=== PATIENT | female | born 1970 | race Caucasian/White ===

== ENCOUNTER 2016-05-04 18:59 | Inpatient (IN) | payer BC ==
[~2016-05-04] VITALS: Ht 165.1 cm; Wt 73.7 kg
[~2016-05-04 18:59] MED LIST: ALDACTONE100 MG PO; ALEVE220 M1 PO; ALLERGY RELIEF10 M1 PO; Cortaid,Hytone 1% Cr TP; DILAUDID2 MG PO; GLUCOPHAGE XR750 MG PO; INDERAL10 MG PO; K-DUR20 MEQ PO; K-Dur PO; KEFLEX500 MG PO; LASIX20 MG PO; LEVAQUIN500 MG PO; Lasix PO; Levaquin PO; MIGRAINE FORMU1 EACH PO; MOTRIN600 MG PO; MOTRIN800 MG PO; NOHOMEMEDS; NOVOLOG PE100 UNITS/ SC; OMEPRAZOLE20 M2 PO; OMEPRAZOLE40 M1 PO; OXYCODONE HCL5 MG PO; PERCOCET 5/31 TABLET PO; POTASSIUM CHLO10 ME3 PO; PROMETHAZINE HC25 M1 PO; PROTONIX40 MG PO; Protonix PO; REGLAN10 MG PO; ULTRAM50 MG PO; VICODIN,LORT1 TABLET PO; VITAMIN C1000 MG PO; VITAMIN K240 MCG PO; Vicodin,Lortab 5/500 PO; Vicodin,Norco 5/325 PO; XIFAXAN550 MG PO; ZOFRAN4 MG PO; ZOFRAN8 MG PO
[2016-05-04 19:51] LABS: CHLORIDE 110 mEq/L (99-109); SODIUM 139 mEq/L (136-147)
[2016-05-04 19:54] LABS: GLUCOSE 197 mg/dL (70-99)
[2016-05-04 19:55] LABS: ANION GAP 12 MEQ/L (2-14)
[2016-05-04 19:57] LABS: ALKALINE PHOSPHATASE 235 IU/L (3-129); GFR ESTIMATE (CALCULATED) > 59 mL/min/; SERUM ETHYL ALCOHOL < 10 mg/dL
[2016-05-04 19:59] LABS: DIRECT BILIRUBIN 1.7 mg/dL (0.0-0.3); UREA NITROGEN (BUN) 6 mg/dL (9-23)
[2016-05-04 20:03] LABS: TROP-I INTERPRETATION NEGATIVE; TROPONIN-I < 0.01 ng/mL (0.0-0.30)
[2016-05-04 20:05] LABS: POTASSIUM 2.4 mEq/L (3.7-5.4)
[2016-05-04 20:39] LABS: HEMATOCRIT 36.2 % (36.0-46.0); HEMATOLOGY COMMENT 1 SMEAR COMPATIBLE; MCH 29.3 PG (29.0-34.0); MCHC 32.3 G/DL (30.0-36.0); MCV 90.7 FL (83-99); RBC DIS.WIDTH-CV 21.2 % (11.8-14.6); RBC DIS.WIDTH-SD 68.5 % (39-53); RED BLOOD COUNT 3.99 M/uL (3.80-5.20); WHITE BLOOD COUNT 3.4 K/uL (4.1-10.2)
[2016-05-04 20:49] LABS: PLATELET COUNT 54 K/uL (156-360)
[2016-05-04] MEDS ORDERED: ALDACTONE50 MG PO (21:34)
[2016-05-04] MEDS ORDERED: PANTOPRAZOLE SO20 MG PO (21:35)
[2016-05-04] MEDS ORDERED: LANTUS 10100 UNITS/ SC (21:36)
[2016-05-04] MEDS ORDERED: VITAMIN B-150 MG PO (21:36)
[2016-05-04] MEDS ORDERED: FOLIC ACID1 MG PO (21:37)
[2016-05-04] MEDS ORDERED: GENERLAC10 GM/15 M PO (21:37)
[2016-05-04] MEDS ORDERED: DAILY VITE1 EAC1 PO (21:38)
[2016-05-04] MEDS ORDERED: ERGOCALCIF50000 UNIT PO (21:38)
[2016-05-04] MEDS ORDERED: MAGNESIUM OXID400 MG PO (21:38)
[2016-05-04] MEDS ORDERED: MIDODRINE HCL5 MG PO (21:39)
[2016-05-04] MEDS ORDERED: VITAMIN A10000 UNIT PO (21:39)
[2016-05-04 21:40] LABS: INTER. NORMALIZED RATIO 1.4
[2016-05-04 22:07] LABS: MAGNESIUM 2.1 mg/dL (1.3-2.7)
[2016-05-04 22:24] LABS: ADD MIUA? YES; BILIRUBIN NEGATIVE; BLOOD SMALL; COLOR YELLOW ((YELLOW)); GLUCOSE (STRIP) NEGATIVE; KETONES NEGATIVE; LEUKOCYTES NEGATIVE; NITRITE NEGATIVE; PH, URINE 7.5 (5-8); PROTEIN (STRIP) TRACE; SPECIFIC GRAVITY 1.016 (1.000-1.030); UROBILINOGEN 0.2 MG/DL (0.2-1.0)
[2016-05-04 22:48] LABS: BACTERIA RARE; CASTS NONE SEEN /LPF; CRYSTALS NONE SEEN; EPITHELIAL CELLS RARE; MUCUS NONE SEEN; RED BLOOD CELLS 0-5 /HPF (0-5); UCUL ADDED? NO; WHITE BLOOD CELLS RARE /HPF (0-5)
[2016-05-04 23:48] VITALS: BP 153/89
[2016-05-05 00:49] LABS: POINT-OF-CARE METER ID UU14174225
[2016-05-05 07:31] LABS: HEMATOCRIT 33.6 % (36.0-46.0); MCH 29.1 PG (29.0-34.0); MCHC 31.5 G/DL (30.0-36.0); MCV 92.3 FL (83-99); RBC DIS.WIDTH-CV 21.7 % (11.8-14.6); RBC DIS.WIDTH-SD 73.1 % (39-53); RED BLOOD COUNT 3.64 M/uL (3.80-5.20); WHITE BLOOD COUNT 4.2 K/uL (4.1-10.2)
[2016-05-05 07:37] LABS: ALKALINE PHOSPHATASE 187 IU/L (3-129); ANION GAP 10 MEQ/L (2-14); CHLORIDE 116 MEQ/L (99-109); GFR ESTIMATE (CALCULATED) > 59 mL/min/; GLUCOSE 146 mg/dL (70-99); POTASSIUM 3.2 MEQ/L (3.7-5.4); SAMPLE HEMOLYSIS CHECK 0; SAMPLE ICTERIC CHECK 1; SAMPLE LIPEMIA CHECK 0; SODIUM 141 MEQ/L (136-147); TOTAL BILIRUBIN 4.5 MG/DL (0.0-1.0); UREA NITROGEN (BUN) 5 mg/dL (9-23)
[2016-05-05 07:54] VITALS: BP 139/76
[2016-05-05 08:21] LABS: PLATELET COUNT 47 K/uL (156-360)
[2016-05-05 11:48] VITALS: BP 103/53
[2016-05-05 15:44] VITALS: BP 122/62
[2016-05-05 18:21] LABS: POINT-OF-CARE METER ID UU14174225
[2016-05-05 20:12] VITALS: BP 127/75
[2016-05-06 00:45] VITALS: BP 131/73
[2016-05-06 04:23] VITALS: BP 124/72
[2016-05-06 07:33] VITALS: BP 123/70
[2016-05-06 09:36] LABS: ANION GAP 9 MEQ/L (2-14); CHLORIDE 109 MEQ/L (99-109); GFR ESTIMATE (CALCULATED) > 59 mL/min/; GLUCOSE 87 mg/dL (70-99); SAMPLE HEMOLYSIS CHECK 0; SAMPLE ICTERIC CHECK 1; SAMPLE LIPEMIA CHECK 0; SODIUM 136 MEQ/L (136-147); UREA NITROGEN (BUN) 5 mg/dL (9-23)
[2016-05-06 10:52] LABS: HEMATOCRIT 33.5 % (36.0-46.0); MCH 29.5 PG (29.0-34.0); MCHC 31.3 G/DL (30.0-36.0); MCV 94.1 FL (83-99); PLATELET COUNT 46 K/uL (156-360); RBC DIS.WIDTH-CV 21.8 % (11.8-14.6); RBC DIS.WIDTH-SD 74.8 % (39-53); RED BLOOD COUNT 3.56 M/uL (3.80-5.20); WHITE BLOOD COUNT 3.2 K/uL (4.1-10.2)
[2016-05-06 11:46] VITALS: BP 117/69
[2016-05-06 15:27] VITALS: BP 128/80
[2016-05-06 20:01] VITALS: BP 119/77
[2016-05-06 23:14] LABS: POINT-OF-CARE METER ID UU14174225
[2016-05-07] VITALS: BP 116/69
[2016-05-07 05:16] VITALS: BP 125/75
[2016-05-07 08:21] VITALS: BP 117/69
[2016-05-07 10:21] LABS: ANION GAP 13 MEQ/L (2-14); MAGNESIUM 1.5 mg/dl (1.3-2.7); POTASSIUM 2.7 MEQ/L (3.7-5.4); SAMPLE HEMOLYSIS CHECK 0; SAMPLE ICTERIC CHECK 1; SAMPLE LIPEMIA CHECK 0; SODIUM 130 MEQ/L (136-147)
[2016-05-07 10:25] LABS: CHLORIDE 97 MEQ/L (99-109); GFR ESTIMATE (CALCULATED) > 59 mL/min/; GLUCOSE 248 mg/dL (70-99); UREA NITROGEN (BUN) 6 mg/dL (9-23)
[2016-05-07 12:32] VITALS: BP 124/69
[2016-05-07 15:24] VITALS: BP 118/73
[2016-05-07 20:18] VITALS: BP 107/61
[2016-05-08 00:26] VITALS: BP 110/60
[2016-05-08 04:20] VITALS: BP 128/84
[2016-05-08 07:27] LABS: ALKALINE PHOSPHATASE 200 IU/L (3-129); ANION GAP 10 MEQ/L (2-14); CHLORIDE 99 MEQ/L (99-109); GFR ESTIMATE (CALCULATED) > 59 mL/min/; GLUCOSE 200 mg/dL (70-99); MAGNESIUM 1.7 mg/dl (1.3-2.7); SAMPLE HEMOLYSIS CHECK 1; SAMPLE ICTERIC CHECK 1; SAMPLE LIPEMIA CHECK 0; SODIUM 129 MEQ/L (136-147); UREA NITROGEN (BUN) 5 mg/dL (9-23)
[2016-05-08 07:30] LABS: TOTAL BILIRUBIN 3.3 MG/DL (0.0-1.0)
[2016-05-08 07:31] LABS: EOSINOPHIL (%) 1.2 % (0-5); EOSINOPHIL COUNT 0.1 K/uL (0-0.3); IMMATURE GRANULOCYTE (%) 0.2 % (0.0-0.7); LYMPHOCYTE COUNT 1.1 K/uL (1.0-2.8); MONOCYTE (%) 11.4 % (3-12); MONOCYTE COUNT 0.6 K/uL (0-0.8); NEUTROPHIL (%) 65.1 % (45-76); NEUTROPHIL COUNT 3.3 K/uL (1.8-6.4)
[2016-05-08 07:52] LABS: POINT-OF-CARE METER ID UU14174225
[2016-05-08 07:53] VITALS: BP 111/67
[2016-05-08 07:53] LABS: MCH 29.5 PG (29.0-34.0); MCV 92.2 FL (83-99); RBC DIS.WIDTH-CV 20.2 % (11.8-14.6); RBC DIS.WIDTH-SD 68.1 % (39-53)
[2016-05-08 07:57] LABS: PLATELET COUNT 68 K/uL (156-360); RED BLOOD COUNT 4.34 M/uL (3.80-5.20); WHITE BLOOD COUNT 5.1 K/uL (4.1-10.2)
[2016-05-08 10:11] LABS: PLAT.SUFFICIENCY DECREASED; USER ID STC
[2016-05-08 12:05] VITALS: BP 125/71
[2016-05-08 15:54] VITALS: BP 111/63
[2016-05-08 16:37] LABS: POINT-OF-CARE METER ID UU14174225
[2016-05-08 19:20] VITALS: BP 100/52
[2016-05-08 22:15] LABS: POINT-OF-CARE METER ID UU14174225
[2016-05-09 00:32] VITALS: BP 104/58
[2016-05-09 04:14] VITALS: BP 107/56
[2016-05-09 07:28] LABS: ANION GAP 10 MEQ/L (2-14); CHLORIDE 98 MEQ/L (99-109); GFR ESTIMATE (CALCULATED) > 59 mL/min/; GLUCOSE 148 mg/dL (70-99); MAGNESIUM 1.6 mg/dl (1.3-2.7); POTASSIUM 2.7 MEQ/L (3.7-5.4); SAMPLE HEMOLYSIS CHECK 0; SAMPLE ICTERIC CHECK 1; SAMPLE LIPEMIA CHECK 0; SODIUM 128 MEQ/L (136-147); UREA NITROGEN (BUN) 5 mg/dL (9-23)
[2016-05-09 08:49] VITALS: BP 101/55
[2016-05-09 12:47] VITALS: BP 110/69
[2016-05-09 13:07] LABS: ANION GAP 12 MEQ/L (2-14); CHLORIDE 97 MEQ/L (99-109); GFR ESTIMATE (CALCULATED) > 59 mL/min/; GLUCOSE 247 mg/dL (70-99); POTASSIUM 3.3 MEQ/L (3.7-5.4); SAMPLE HEMOLYSIS CHECK 0; SAMPLE ICTERIC CHECK 0; SAMPLE LIPEMIA CHECK 0; SODIUM 127 MEQ/L (136-147); UREA NITROGEN (BUN) 5 mg/dL (9-23)
[2016-05-09 19:54] VITALS: BP 100/59
[2016-05-10 00:44] VITALS: BP 114/67
[2016-05-10 04:05] VITALS: BP 107/63
[2016-05-10 07:31] LABS: ANION GAP 8 MEQ/L (2-14); CHLORIDE 104 MEQ/L (99-109); GFR ESTIMATE (CALCULATED) > 59 mL/min/; GLUCOSE 172 mg/dL (70-99); MAGNESIUM 1.7 mg/dl (1.3-2.7); POTASSIUM 3.4 MEQ/L (3.7-5.4); SAMPLE HEMOLYSIS CHECK 0; SAMPLE ICTERIC CHECK 0; SAMPLE LIPEMIA CHECK 0; SODIUM 131 MEQ/L (136-147); UREA NITROGEN (BUN) 4 mg/dL (9-23)
[2016-05-10 07:43] VITALS: BP 132/73
[2016-05-10 11:35] VITALS: BP 131/80
[2016-05-10 15:21] VITALS: BP 104/58
[2016-05-10 16:45] LABS: POINT-OF-CARE METER ID UU14174225
== END 2016-05-10 18:21 | disposition home or self-care (01) | DRG 442 ==
LOC: EME 18:59 → EDOF 21:35 → 5SOUTH 21:35
PROVIDERS: Emergency Medicine; Hospitalist; Internal Medicine; Physician Assistant
PROC: 0W9G3ZZ Drainage of Peritoneal Cavity, Percutaneous Approach (ICD-10-PCS; principal; 2016-05-07)
DX: K72.90 Hepatic failure, unspecified without coma (principal); D61.818 Other pancytopenia; D68.9 Coagulation defect, unspecified; K70.31 Alcoholic cirrhosis of liver with ascites; E11.9 Type 2 diabetes mellitus without complications; D69.6 Thrombocytopenia, unspecified; G31.2 Degeneration of nervous system due to alcohol; F10.21 Alcohol dependence, in remission; E87.6 Hypokalemia; F17.210 Nicotine dependence, cigarettes, uncomplicated; R56.9 Unspecified convulsions; Q27.33 Arteriovenous malformation of digestive system vessel; K21.9 Gastro-esophageal reflux disease without esophagitis; Z90.49 Acquired absence of other specified parts of digestive tract
CPT/HCPCS: 70450; 71010; 80048; 80048 91; 80053; 80076; 81003; 82140; 82150 91; 82570; 82945; 82948; 83615 91; 83735; 83930; 83935; 84100; 84132 91; 84157; 84300; 84443; 84484; 85014; 85018; 85025; 85027; 85610; 85730; 87070; 87205; 89051; 93005; 99281; 99284; C9113; G0480; J1630; J1815; J1940; J2250; J3480; J7030; J7050

== ENCOUNTER 2016-06-17 11:56 | Emergency (ER) | payer BC ==
[~2016-06-17] VITALS: Ht 157.5 cm; Wt 76.1 kg
[~2016-06-17 11:56] MED LIST changes: +ALDACTONE50 MG PO; +DAILY VITE1 EAC1 PO; +ERGOCALCIF50000 UNIT PO; +FOLIC ACID1 MG PO; +GENERLAC10 GM/15 M PO; +LANTUS 10100 UNITS/ SC; +MAGNESIUM OXID400 MG PO; +MIDODRINE HCL5 MG PO; +PANTOPRAZOLE SO20 MG PO; +VITAMIN A10000 UNIT PO; +VITAMIN B-150 MG PO
[2016-06-17 15:52] LABS: HEMATOCRIT 37.9 % (36.0-46.0); MCH 29.9 PG (29.0-34.0); MCHC 33.5 G/DL (30.0-36.0); MCV 89.2 FL (83-99); PLATELET COUNT 53 K/uL (156-360); RBC DIS.WIDTH-CV 18.7 % (11.8-14.6); RBC DIS.WIDTH-SD 58.9 % (39-53); RED BLOOD COUNT 4.25 M/uL (3.80-5.20); WHITE BLOOD COUNT 4.7 K/uL (4.1-10.2)
[2016-06-17 16:02] LABS: INTER. NORMALIZED RATIO 1.2; PROTHROMBIN TIME 12.6 (9.2-11.2); PTT 31.7 (25-32)
[2016-06-17 16:03] LABS: CHLORIDE 112 mEq/L (99-109); SODIUM 135 mEq/L (136-147)
[2016-06-17 16:05] LABS: EOSINOPHIL (%) 1.9 % (0-5); EOSINOPHIL COUNT 0.1 K/uL (0-0.3); GLUCOSE 194 mg/dL (70-99); IMMATURE GRANULOCYTE (%) 0.2 % (0.0-0.7); IMMATURE GRANULOCYTE COUNT 0.1 K/uL; LYMPHOCYTE COUNT 0.7 K/uL (1.0-2.8); MONOCYTE (%) 10.4 % (3-12); MONOCYTE COUNT 0.5 K/uL (0-0.8); NEUTROPHIL COUNT 3.4 K/uL (1.8-6.4)
[2016-06-17 16:06] LABS: ANION GAP 7 MEQ/L (2-14)
[2016-06-17 16:07] LABS: TOTAL BILIRUBIN 1.6 mg/dL (0.0-1.0)
[2016-06-17 16:08] LABS: ALKALINE PHOSPHATASE 172 IU/L (3-129)
[2016-06-17 16:09] LABS: GFR ESTIMATE (CALCULATED) > 59 mL/min/
[2016-06-17 16:10] LABS: UREA NITROGEN (BUN) 6 mg/dL (9-23)
[2016-06-17] MEDS ORDERED: DOXYCYCLINE HY100 MG PO (17:27)
[2016-06-17] MEDS ORDERED: HYCODAN SYRUP480 ML PO (17:27)
[2016-06-17 18:52] LABS: POINT-OF-CARE METER ID UU14100415
[2016-06-17 19:02] VITALS: BP 100/73
== END 2016-06-17 19:11 | disposition home or self-care (01) ==
LOC: EME 11:56
PROVIDERS: Emergency Medicine
DX: R04.2 Hemoptysis (principal); K70.31 Alcoholic cirrhosis of liver with ascites; M54.2 Cervicalgia; R11.2 Nausea with vomiting, unspecified; E11.9 Type 2 diabetes mellitus without complications; Z79.4 Long term (current) use of insulin; F17.200 Nicotine dependence, unspecified, uncomplicated
CPT/HCPCS: 71010; 76705; 80053; 82948; 85025; 85610; 85730; 99281; 99285; J3010; J7040

== ENCOUNTER 2016-10-09 16:21 | Inpatient (IN) | payer BC ==
[~2016-10-09] VITALS: Ht 2651.8 cm; Wt 82.3 kg
[~2016-10-09 16:21] MED LIST changes: +DOXYCYCLINE HY100 MG PO; +HYCODAN SYRUP480 ML PO
[2016-10-09 18:37] LABS: HEMATOCRIT 37.4 % (36.0-46.0); MCH 33.7 PG (29.0-34.0); MCHC 36.4 G/DL (30.0-36.0); RBC DIS.WIDTH-CV 14.6 % (11.8-14.6); RED BLOOD COUNT 4.04 M/uL (3.80-5.20); WHITE BLOOD COUNT 16.9 K/uL (4.1-10.2)
[2016-10-09 18:49] LABS: CHLORIDE 105 mEq/L (99-109); SODIUM 126 mEq/L (136-147)
[2016-10-09 18:51] LABS: GLUCOSE 159 mg/dL (70-99)
[2016-10-09 18:52] LABS: ANION GAP 9 MEQ/L (2-14)
[2016-10-09 18:53] LABS: TOTAL BILIRUBIN 5.5 mg/dL (0.0-1.0)
[2016-10-09 18:54] LABS: ALKALINE PHOSPHATASE 131 IU/L (3-129)
[2016-10-09 18:55] LABS: GFR ESTIMATE (CALCULATED) > 59 mL/min/
[2016-10-09 18:56] LABS: UREA NITROGEN (BUN) 20 mg/dL (9-23)
[2016-10-09 18:57] LABS: MCV 92.6 FL (83-99)
[2016-10-09 18:58] LABS: POTASSIUM 3.1 mEq/L (3.7-5.4)
[2016-10-09] MEDS ORDERED: POTASSIUM CHLO20 ME1 PO (19:32)
[2016-10-09] MEDS ORDERED: OMEPRAZOLE40 M1 PO (19:33)
[2016-10-09] MEDS ORDERED: VITAMIN B-1100 MG PO (19:34)
[2016-10-09] MEDS ORDERED: ZINC50 M1 PO (19:34)
[2016-10-09] MEDS ORDERED: IRON325 M1 PO (19:35)
[2016-10-09] MEDS ORDERED: PROPRANOLOL HCL10 MG PO (19:35)
[2016-10-09] MEDS ORDERED: WELLBUTRIN SR100 MG PO (19:35)
[2016-10-09] MEDS ORDERED: HUMALOG100 UNIT/2 SC (19:35)
[2016-10-09 19:58] LABS: PLATELET CLUMPS PRESENT - PLATELET COUNTS APPEARS DECREASED; PLATELET COUNT UNABLE TO REPORT K/uL (156-360)
[2016-10-09 21:31] LABS: ADD MIUA? YES; BILIRUBIN NEGATIVE; BLOOD MODERATE; COLOR AMBER ((YELLOW)); GLUCOSE (STRIP) NEGATIVE; KETONES NEGATIVE; LEUKOCYTES LARGE; NITRITE NEGATIVE; PROTEIN (STRIP) 100; SPECIFIC GRAVITY 1.015 (1.000-1.030)
[2016-10-09 21:42] LABS: BACTERIA 1+ /HPF; EPITHELIAL CELLS 3+ /HPF; MUCUS NONE SEEN /LPF; RED BLOOD CELLS 20-30 /HPF (0-5); UCUL ADDED? YES; WHITE BLOOD CELLS TNTC /HPF (0-5); WHITE BLOOD CELLS CLUMP MANY /HPF (0-5)
[2016-10-09 22:19] LABS: CHLORIDE 108 mEq/L (99-109); POTASSIUM 3.3 mEq/L (3.7-5.4); SODIUM 129 mEq/L (136-147)
[2016-10-09 22:21] LABS: GLUCOSE 182 mg/dL (70-99)
[2016-10-09 22:23] LABS: ANION GAP 8 MEQ/L (2-14); TOTAL BILIRUBIN 5.3 mg/dL (0.0-1.0)
[2016-10-09 22:25] LABS: ALKALINE PHOSPHATASE 116 IU/L (3-129); GFR ESTIMATE (CALCULATED) > 59 mL/min/
[2016-10-09 22:26] LABS: UREA NITROGEN (BUN) 20 mg/dL (9-23)
[2016-10-09 22:31] LABS: INTER. NORMALIZED RATIO 1.4; PROTHROMBIN TIME 14.4 (9.2-11.2)
[2016-10-09 23:30] VITALS: BP 82/40
[2016-10-10] VITALS (8 sets, daily range): BP systolic 83–119; BP diastolic 45–61
[2016-10-10 00:37] LABS: POINT-OF-CARE METER ID UU14174217
[2016-10-10 01:39] LABS: INTERNAL CONTROL VALID? YES
[2016-10-10 01:41] LABS: METH RESISTANT S AUREUS PCR NEGATIVE (NEGATIVE)
[2016-10-10 01:49] LABS: PROBE CHECK PASS; SPECIMEN PROCESSING CONTROL PASS
[2016-10-10 02:09] LABS: C DIFF TOXIN POSITIVE (NEGATIVE)
[2016-10-10 02:10] LABS: PROBE CHECK PASS
[2016-10-10 06:24] LABS: ALKALINE PHOSPHATASE 120 IU/L (3-129); ANION GAP 7 MEQ/L (2-14); CHLORIDE 110 MEQ/L (99-109); GFR ESTIMATE (CALCULATED) > 59 mL/min/; POTASSIUM 3.6 MEQ/L (3.7-5.4); SAMPLE HEMOLYSIS CHECK 0; SAMPLE ICTERIC CHECK 1; SAMPLE LIPEMIA CHECK 0; SODIUM 131 MEQ/L (136-147); TOTAL BILIRUBIN 5.3 MG/DL (0.0-1.0); UREA NITROGEN (BUN) 19 mg/dL (9-23)
[2016-10-10 06:25] LABS: GLUCOSE 104 mg/dL (70-99)
[2016-10-10 07:47] LABS: HEMATOCRIT 35.4 % (36.0-46.0); MCH 34.1 PG (29.0-34.0); MCHC 35.6 G/DL (30.0-36.0); MCV 95.9 FL (83-99); RBC DIS.WIDTH-CV 15.1 % (11.8-14.6); RBC DIS.WIDTH-SD 53.1 % (39-53); RED BLOOD COUNT 3.69 M/uL (3.80-5.20); WHITE BLOOD COUNT 16.6 K/uL (4.1-10.2)
[2016-10-10 08:36] LABS: ABS NEUTROPHIL COUNT 15.7; ANISOCYTOSIS 2+; BAND NEUTROPHILS 8.7 % (0-8.0); BURR CELLS 3+; EOSINOPHIL ABS CT 0.1; EOSINOPHILS 0.9 % (0-5.0); INSTRUMENT ABS NEUTROPHIL CT 13.3 K/uL; LYMPHOCYTES 1.7 % (15.0-45.0); MACROCYTES 2+; POIKILOCYTOSIS 3+; SEG.NEUTROPHILS 86.1 % (46.0-76.0); TOX.VACUOLIZATION 3+; TOXIC GRANULATION 2+
[2016-10-10 08:38] LABS: PLAT.SUFFICIENCY VERY DECREASED
[2016-10-10 10:53] LABS: MEAN PLAT.VOLUME 12.6 uM^3 (9.5-12.4); PLATELET COUNT 27 K/uL (156-360)
[2016-10-10 12:17] LABS: POINT-OF-CARE METER ID UU13113731
[2016-10-10 21:31] LABS: POINT-OF-CARE METER ID UU14174217
[2016-10-11] VITALS: BP 92/55
[2016-10-11 04:00] VITALS: BP 100/63
[2016-10-11 05:37] LABS: HEMATOCRIT 33.9 % (36.0-46.0); MCH 33.6 PG (29.0-34.0); MCHC 34.8 G/DL (30.0-36.0); MCV 96.6 FL (83-99); RBC DIS.WIDTH-CV 15.8 % (11.8-14.6); RBC DIS.WIDTH-SD 55.4 % (39-53); RED BLOOD COUNT 3.51 M/uL (3.80-5.20); WHITE BLOOD COUNT 12.3 K/uL (4.1-10.2)
[2016-10-11 06:06] LABS: CHLORIDE 112 MEQ/L (99-109); GFR ESTIMATE (CALCULATED) > 59 mL/min/; GLUCOSE 121 mg/dL (70-99); POTASSIUM 2.9 MEQ/L (3.7-5.4); SODIUM 132 MEQ/L (136-147); UREA NITROGEN (BUN) 11 mg/dL (9-23)
[2016-10-11 06:17] LABS: ALKALINE PHOSPHATASE 102 IU/L (3-129); ANION GAP 8 MEQ/L (2-14); SAMPLE HEMOLYSIS CHECK 0; SAMPLE ICTERIC CHECK 1; SAMPLE LIPEMIA CHECK 0; TOTAL BILIRUBIN 4.1 MG/DL (0.0-1.0)
[2016-10-11 06:19] LABS: PLAT.SUFFICIENCY VERY DECREASED
[2016-10-11 06:41] VITALS: BP 102/55
[2016-10-11 08:31] LABS: PLATELET COUNT 27 K/uL (156-360)
[2016-10-11 08:33] LABS: MEAN PLAT.VOLUME 12.8 uM^3 (9.5-12.4)
[2016-10-11 08:44] LABS: MAGNESIUM 1.6 mg/dl (1.3-2.7)
[2016-10-11 11:05] VITALS: BP 122/70
[2016-10-11 15:21] VITALS: BP 118/66
[2016-10-11 19:30] VITALS: BP 103/58
[2016-10-11 20:29] LABS: POINT-OF-CARE METER ID UU13113698
[2016-10-12] VITALS (7 sets, daily range): BP systolic 80–113; BP diastolic 46–64
[2016-10-12 04:48] LABS: POINT-OF-CARE METER ID UU14174216
[2016-10-12 06:03] LABS: INTER. NORMALIZED RATIO 1.6; PROTHROMBIN TIME 16.1 (9.2-11.2); PTT 46.7 (25-32)
[2016-10-12 06:18] LABS: ALKALINE PHOSPHATASE 97 IU/L (3-129); ANION GAP 7 MEQ/L (2-14); CHLORIDE 112 MEQ/L (99-109); GFR ESTIMATE (CALCULATED) > 59 mL/min/; GLUCOSE 112 mg/dL (70-99); MAGNESIUM 1.4 mg/dl (1.3-2.7); POTASSIUM 2.9 MEQ/L (3.7-5.4); SAMPLE HEMOLYSIS CHECK 0; SAMPLE ICTERIC CHECK 1; SAMPLE LIPEMIA CHECK 0; SODIUM 136 MEQ/L (136-147); TOTAL BILIRUBIN 4.6 MG/DL (0.0-1.0); UREA NITROGEN (BUN) 7 mg/dL (9-23)
[2016-10-12 06:44] LABS: HEMATOCRIT 32.5 % (36.0-46.0); MCH 34.2 PG (29.0-34.0); MCHC 35.7 G/DL (30.0-36.0); MCV 95.9 FL (83-99); RBC DIS.WIDTH-CV 15.8 % (11.8-14.6); RBC DIS.WIDTH-SD 55.2 % (39-53); RED BLOOD COUNT 3.39 M/uL (3.80-5.20)
[2016-10-12 07:11] LABS: IMM.PLATELET FRACTION 10.3 (1-7); MEAN PLAT.VOLUME 12.4 uM^3 (9.5-12.4); PLAT.SUFFICIENCY DECREASED
[2016-10-12 07:39] LABS: PLATELET COUNT 38 K/uL (156-360)
[2016-10-12 16:18] LABS: POINT-OF-CARE METER ID UU14174216
[2016-10-13 03:30] VITALS: BP 91/51
[2016-10-13 06:28] LABS: ANION GAP 8 MEQ/L (2-14); CHLORIDE 106 MEQ/L (99-109); GFR ESTIMATE (CALCULATED) > 59 mL/min/; MAGNESIUM 1.4 mg/dl (1.3-2.7); POTASSIUM 2.9 MEQ/L (3.7-5.4); SAMPLE HEMOLYSIS CHECK 0; SAMPLE ICTERIC CHECK 1; SAMPLE LIPEMIA CHECK 0; SODIUM 133 MEQ/L (136-147); UREA NITROGEN (BUN) 6 mg/dL (9-23)
[2016-10-13 06:29] LABS: GLUCOSE 77 mg/dL (70-99)
[2016-10-13 07:52] LABS: HEMATOCRIT 33.2 % (36.0-46.0); MCH 34.1 PG (29.0-34.0); MCHC 35.5 G/DL (30.0-36.0); RBC DIS.WIDTH-CV 15.7 % (11.8-14.6); RED BLOOD COUNT 3.46 M/uL (3.80-5.20); WHITE BLOOD COUNT 10.7 K/uL (4.1-10.2)
[2016-10-13 08:00] VITALS: BP 104/68
[2016-10-13 08:47] LABS: POINT-OF-CARE USER ID NUTSLF44
[2016-10-13 09:25] LABS: IMM.PLATELET FRACTION 10.6 (1-7); MEAN PLAT.VOLUME 11.7 uM^3 (9.5-12.4); PLAT.SUFFICIENCY DECREASED; PLATELET COUNT 47 K/uL (156-360)
[2016-10-13 11:30] VITALS: BP 98/66
[2016-10-13 15:17] VITALS: BP 104/58
[2016-10-13 17:09] LABS: POINT-OF-CARE METER ID UU13113698
[2016-10-13 20:15] VITALS: BP 107/57
[2016-10-13 23:20] VITALS: BP 120/60
[2016-10-14 03:20] VITALS: BP 109/58
[2016-10-14 07:00] LABS: HEMATOCRIT 32.8 % (36.0-46.0); MCH 34.5 PG (29.0-34.0); MCHC 35.7 G/DL (30.0-36.0); MCV 96.8 FL (83-99); MEAN PLAT.VOLUME 12.3 uM^3 (9.5-12.4); RBC DIS.WIDTH-CV 15.6 % (11.8-14.6); RBC DIS.WIDTH-SD 54.6 % (39-53); RED BLOOD COUNT 3.39 M/uL (3.80-5.20); WHITE BLOOD COUNT 10.5 K/uL (4.1-10.2)
[2016-10-14 07:01] LABS: PLATELET COUNT 63 K/uL (156-360)
[2016-10-14 07:06] VITALS: BP 100/56
[2016-10-14 07:21] LABS: ANION GAP 6 MEQ/L (2-14); CHLORIDE 108 MEQ/L (99-109); GFR ESTIMATE (CALCULATED) > 59 mL/min/; MAGNESIUM 1.3 mg/dl (1.3-2.7); POTASSIUM 3.4 MEQ/L (3.7-5.4); SAMPLE HEMOLYSIS CHECK 0; SAMPLE ICTERIC CHECK 1; SAMPLE LIPEMIA CHECK 0; SODIUM 133 MEQ/L (136-147); UREA NITROGEN (BUN) 7 mg/dL (9-23)
[2016-10-14 07:30] LABS: GLUCOSE 119 mg/dL (70-99)
[2016-10-14 07:47] LABS: POINT-OF-CARE METER ID UU14174216
[2016-10-14 11:25] LABS: POINT-OF-CARE METER ID UU13113781
[2016-10-14] MEDS ORDERED: GENERLAC10 GM/15 M PO (11:39)
[2016-10-14] MEDS ORDERED: AMOXICILLIN500 MG PO (11:39)
[2016-10-14] MEDS ORDERED: VANCOMYCIN125 MG/2.5 PO (11:39)
[2016-10-14] MEDS ORDERED: FLORASTOR250 MG PO (11:39)
[2016-10-14] MEDS ORDERED: NICOTINE PATCH1 EAC2 TD (11:39)
[2016-10-14] MEDS ORDERED: XIFAXAN550 MG PO (11:39)
[2016-10-14] MEDS ORDERED: VANCOMYCIN HCL125 MG PO (12:17)
== END 2016-10-14 13:10 | disposition home or self-care (01) | DRG 871 ==
LOC: EME 16:21 → 4EAST 21:01 → EDOF 21:01 → 4WEST 22:58 → 4EAST 10-11 06:33
PROVIDERS: Emergency Medicine; Internal Medicine
DX: A41.51 Sepsis due to Escherichia coli [E. coli] (principal); N39.0 Urinary tract infection, site not specified; A04.7 Enterocolitis due to Clostridium difficile; G93.41 Metabolic encephalopathy; D68.4 Acquired coagulation factor deficiency; E87.1 Hypo-osmolality and hyponatremia; E87.2 Acidosis; K70.31 Alcoholic cirrhosis of liver with ascites; K76.6 Portal hypertension; D69.59 Other secondary thrombocytopenia; E11.9 Type 2 diabetes mellitus without complications; E66.9 Obesity, unspecified; E83.39 Other disorders of phosphorus metabolism; E83.42 Hypomagnesemia; E87.6 Hypokalemia; F17.210 Nicotine dependence, cigarettes, uncomplicated; K70.40 Alcoholic hepatic failure without coma; F10.20 Alcohol dependence, uncomplicated; G40.909 Epilepsy, unspecified, not intractable, without status epilepticus; K21.9 Gastro-esophageal reflux disease without esophagitis; I95.9 Hypotension, unspecified; E86.0 Dehydration; Z76.82 Awaiting organ transplant status; Z79.4 Long term (current) use of insulin; Z85.42 Personal history of malignant neoplasm of other parts of uterus; Z90.710 Acquired absence of both cervix and uterus
CPT/HCPCS: 36415; 71010; 76705; 80048; 80053; 80202; 81003; 82140; 82150 91; 82746; 82945; 82948; 83605; 83630; 83735; 83930; 83935; 84100; 84157; 84300; 85025; 85027; 85610; 85730; 87040; 87070; 87077; 87086; 87177; 87186; 87205; 87493; 87641; 87801; 89051; 93005; 99281; 99285; J0290; J1815; J2543; J3370; J3475; J7030; J7050; J7120; P9047; S0028

== ENCOUNTER → 2016-12-03 | Outpatient (CLI) | payer BC ==
[~2016-12-03] MED LIST changes: +AMOXICILLIN500 MG PO; +FLORASTOR250 MG PO; +HUMALOG100 UNIT/2 SC; +IRON325 M1 PO; +NICOTINE PATCH1 EAC2 TD; +POTASSIUM CHLO20 ME1 PO; +PROAIR HFA8.5 GM IH; +PROPRANOLOL HCL10 MG PO; +VANCOMYCIN HCL125 MG PO; +VANCOMYCIN125 MG/2.5 PO; +VITAMIN B-1100 MG PO; +WELLBUTRIN SR100 MG PO; +ZINC50 M1 PO
== END | disposition home or self-care (01) ==
LOC: RES 11-26 13:00
DX: R94.2 Abnormal results of pulmonary function studies (principal); I85.00 Esophageal varices without bleeding
CPT/HCPCS: 94060; 94620; 94726; 94729

== ENCOUNTER 2016-12-07 21:43 | Emergency (ER) | payer BC ==
[~2016-12-07] VITALS: Ht 157.5 cm; Wt 80.3 kg
[~2016-12-07 21:43] MED LIST changes: -PROAIR HFA8.5 GM IH
[2016-12-07 22:58] LABS: HEMATOCRIT 43.7 % (36.0-46.0); MCV 97.1 FL (83-99); MEAN PLAT.VOLUME 11.3 uM^3 (9.5-12.4); PLATELET COUNT 64 K/uL (156-360); RBC DIS.WIDTH-CV 14.2 % (11.8-14.6); RBC DIS.WIDTH-SD 50.6 % (39-53); WHITE BLOOD COUNT 6.1 K/uL (4.1-10.2)
[2016-12-07 23:08] LABS: CHLORIDE 113 mEq/L (99-109); POTASSIUM 4.1 mEq/L (3.7-5.4); SODIUM 138 mEq/L (136-147)
[2016-12-07 23:09] LABS: ADD MIUA? YES; BILIRUBIN NEGATIVE; BLOOD NEGATIVE; COLOR YELLOW ((YELLOW)); GLUCOSE (STRIP) >=500; KETONES NEGATIVE; LEUKOCYTES SMALL; NITRITE NEGATIVE; PROTEIN (STRIP) NEGATIVE; SPECIFIC GRAVITY 1.008 (1.000-1.030); UROBILINOGEN 0.2 MG/DL (0.2-1.0)
[2016-12-07 23:11] LABS: GLUCOSE 239 mg/dL (70-99)
[2016-12-07 23:12] LABS: ANION GAP 6 MEQ/L (2-14); TOTAL BILIRUBIN 1.8 mg/dL (0.0-1.0)
[2016-12-07 23:14] LABS: ALKALINE PHOSPHATASE 153 IU/L (3-129); GFR ESTIMATE (CALCULATED) > 59 mL/min/
[2016-12-07 23:14] LABS: BACTERIA 2+ /HPF; EPITHELIAL CELLS 4+ /HPF; MUCUS TRACE /LPF; RED BLOOD CELLS 0-5 /HPF (0-5); UCUL ADDED? YES; WHITE BLOOD CELLS 30-40 /HPF (0-5)
[2016-12-07 23:15] LABS: UREA NITROGEN (BUN) 10 mg/dL (9-23)
[2016-12-07 23:16] LABS: DIRECT BILIRUBIN 0.7 mg/dL (0.0-0.3)
[2016-12-07 23:23] LABS: QUANTITATIVE HCG < 4.0 MIU/ML
[2016-12-07 23:29] LABS: TROP-I INTERPRETATION NEGATIVE; TROPONIN-I < 0.01 ng/mL (0.0-0.30)
[2016-12-08] MEDS ORDERED: PROAIR HFA8.5 GM IH (00:15)
[2016-12-08 00:26] VITALS: BP 134/81
== END 2016-12-08 00:28 | disposition home or self-care (01) ==
LOC: EME 21:43
PROVIDERS: Physician Assistant
DX: R06.02 Shortness of breath (principal); E11.9 Type 2 diabetes mellitus without complications; Z79.4 Long term (current) use of insulin; J45.909 Unspecified asthma, uncomplicated; K21.9 Gastro-esophageal reflux disease without esophagitis; K74.60 Unspecified cirrhosis of liver; Z85.42 Personal history of malignant neoplasm of other parts of uterus; Z90.710 Acquired absence of both cervix and uterus; F17.200 Nicotine dependence, unspecified, uncomplicated; F10.10 Alcohol abuse, uncomplicated
CPT/HCPCS: 71020; 80048; 80076; 81003; 84484; 84702; 85027; 87077; 87086; 87186; 93005; 94640; 94640 76; 99281; 99285; J1940

== ENCOUNTER 2016-12-14 20:44 | Inpatient (IN) | payer BC ==
[~2016-12-14] VITALS: Ht 160 cm; Wt 83.4 kg
[~2016-12-14 20:44] MED LIST changes: +PROAIR HFA8.5 GM IH
[2016-12-14 21:27] LABS: HEMATOCRIT 42.3 % (36.0-46.0); MCHC 33.8 G/DL (30.0-36.0); MCV 97.7 FL (83-99); MEAN PLAT.VOLUME 10.9 uM^3 (9.5-12.4); PLATELET COUNT 58 K/uL (156-360); RBC DIS.WIDTH-CV 14.2 % (11.8-14.6); RBC DIS.WIDTH-SD 51.6 % (39-53); RED BLOOD COUNT 4.33 M/uL (3.80-5.20); WHITE BLOOD COUNT 7.6 K/uL (4.1-10.2)
[2016-12-14 21:36] LABS: CHLORIDE 110 mEq/L (99-109); POTASSIUM 3.8 mEq/L (3.7-5.4); SODIUM 137 mEq/L (136-147)
[2016-12-14 21:38] LABS: GLUCOSE 181 mg/dL (70-99)
[2016-12-14 21:39] LABS: ANION GAP 6 MEQ/L (2-14)
[2016-12-14 21:42] LABS: GFR ESTIMATE (CALCULATED) > 59 mL/min/
[2016-12-14 21:43] LABS: UREA NITROGEN (BUN) 11 mg/dL (9-23)
[2016-12-14 22:17] LABS: INTER. NORMALIZED RATIO 1.3; PROTHROMBIN TIME 14.2 SEC (10.2-12.9)
[2016-12-14] MEDS ORDERED: GENERLAC10 GM/15 M PO (23:08)
[2016-12-14] MEDS ORDERED: OMEPRAZOLE40 M1 PO (23:10)
[2016-12-14] MEDS ORDERED: ZOFRAN4 MG PO (23:12)
[2016-12-15 01:35] VITALS: BP 123/66
[2016-12-15 07:18] VITALS: BP 101/63
[2016-12-15 07:20] LABS: ALKALINE PHOSPHATASE 98 IU/L (3-129); ANION GAP 5 MEQ/L (2-14); CHLORIDE 111 MEQ/L (99-109); GFR ESTIMATE (CALCULATED) > 59 mL/min/; GLUCOSE 185 mg/dL (70-99); HEMATOCRIT 33.6 % (36.0-46.0); MCV 99.4 FL (83-99); POTASSIUM 4.2 MEQ/L (3.7-5.4); SAMPLE HEMOLYSIS CHECK 0; SAMPLE ICTERIC CHECK 0; SAMPLE LIPEMIA CHECK 0; SODIUM 138 MEQ/L (136-147); TOTAL BILIRUBIN 2.1 MG/DL (0.0-1.0); UREA NITROGEN (BUN) 16 mg/dL (9-23)
[2016-12-15 12:52] LABS: HEMATOCRIT 32.2 % (36.0-46.0); MCV 100.6 FL (83-99)
[2016-12-15 13:02] LABS: POINT-OF-CARE USER ID STWAMT
[2016-12-15 15:21] VITALS: BP 104/57
[2016-12-15 18:17] LABS: HEMATOCRIT 31.4 % (36.0-46.0); MCV 100.3 FL (83-99)
[2016-12-15 19:00] LABS: C DIFF TOXIN POSITIVE (NEGATIVE)
[2016-12-15 19:04] LABS: PROBE CHECK PASS
[2016-12-15 22:46] VITALS: BP 86/52
[2016-12-15 22:52] LABS: POINT-OF-CARE METER ID UU14188625
[2016-12-16 01:09] VITALS: BP 91/54
[2016-12-16 01:29] LABS: HEMATOCRIT 29.8 % (36.0-46.0); MCV 98.3 FL (83-99)
[2016-12-16 03:59] LABS: POINT-OF-CARE METER ID UU14188625
[2016-12-16 07:07] LABS: HEMATOCRIT 28.4 % (36.0-46.0); MCH 33.6 PG (29.0-34.0); MCHC 33.5 G/DL (30.0-36.0); MCV 100.4 FL (83-99); RBC DIS.WIDTH-CV 14.5 % (11.8-14.6); RBC DIS.WIDTH-SD 52.5 % (39-53)
[2016-12-16 07:12] LABS: INTER. NORMALIZED RATIO 1.3; PROTHROMBIN TIME 14.7 SEC (10.2-12.9)
[2016-12-16 07:20] VITALS: BP 144/79
[2016-12-16 07:30] LABS: RED BLOOD COUNT 2.83 M/uL (3.80-5.20)
[2016-12-16 08:02] VITALS: BP 144/66
[2016-12-16 09:47] LABS: IMM.PLATELET FRACTION 3.6 (1-7); PLAT.SUFFICIENCY DECREASED; PLATELET COUNT 44 K/uL (156-360)
[2016-12-16 12:07] LABS: HEMATOCRIT 28.5 % (36.0-46.0); MCV 100.7 FL (83-99)
[2016-12-16 15:22] VITALS: BP 106/54
[2016-12-16 15:47] LABS: POINT-OF-CARE METER ID UU14107333
[2016-12-16 17:17] LABS: POINT-OF-CARE USER ID 515036437
[2016-12-16 21:23] LABS: POINT-OF-CARE METER ID UU14174225
[2016-12-16 23:48] VITALS: BP 82/54
[2016-12-17 06:49] LABS: HEMATOCRIT 27.2 % (36.0-46.0); MCH 34.1 PG (29.0-34.0); MCHC 33.5 G/DL (30.0-36.0); MCV 101.9 FL (83-99); RBC DIS.WIDTH-CV 14.6 % (11.8-14.6); RBC DIS.WIDTH-SD 53.2 % (39-53); RED BLOOD COUNT 2.67 M/uL (3.80-5.20); WHITE BLOOD COUNT 4.5 K/uL (4.1-10.2)
[2016-12-17 07:24] LABS: IMM.PLATELET FRACTION 3.5 (1-7); MEAN PLAT.VOLUME 10.8 uM^3 (9.5-12.4); PLAT.SUFFICIENCY DECREASED; PLATELET COUNT 40 K/uL (156-360)
[2016-12-17 07:53] LABS: POINT-OF-CARE METER ID UU13113717
[2016-12-17 08:12] VITALS: BP 100/58
[2016-12-17 08:16] LABS: POINT-OF-CARE METER ID UU13113717
[2016-12-17 12:39] LABS: HEMATOCRIT 27.6 % (36.0-46.0); MCV 102.2 FL (83-99)
[2016-12-17 12:41] LABS: POINT-OF-CARE METER ID UU13113717
[2016-12-17 16:26] VITALS: BP 88/51
[2016-12-17 16:47] LABS: POINT-OF-CARE METER ID UU13113717
[2016-12-17 18:35] LABS: HEMATOCRIT 30.2 % (36.0-46.0); MCV 104.1 FL (83-99)
[2016-12-17 21:04] LABS: POINT-OF-CARE METER ID UU14188625
[2016-12-17 23:13] VITALS: BP 81/50
[2016-12-17 23:50] VITALS: BP 81/50
[2016-12-18 03:42] VITALS: BP 82/50
[2016-12-18 03:42] LABS: POINT-OF-CARE METER ID UU14188625
[2016-12-18 05:33] LABS: EOSINOPHIL (%) 1.8 % (0-5); EOSINOPHIL COUNT 0.1 K/uL (0-0.3); HEMATOCRIT 29.3 % (36.0-46.0); IMMATURE GRANULOCYTE (%) 0.6 % (0.0-0.7); INSTRUMENT ABS NEUTROPHIL CT 4.4 K/uL; LYMPHOCYTE COUNT 1.4 K/uL (1.0-2.8); MCH 33.7 PG (29.0-34.0); MCHC 33.4 G/DL (30.0-36.0); MCV 100.7 FL (83-99); MONOCYTE (%) 10.1 % (3-12); MONOCYTE COUNT 0.7 K/uL (0-0.8); NEUTROPHIL COUNT 4.4 K/uL (1.8-6.4); PLATELET COUNT 51 K/uL (156-360); RBC DIS.WIDTH-CV 14.5 % (11.8-14.6); RBC DIS.WIDTH-SD 52.8 % (39-53); RED BLOOD COUNT 2.91 M/uL (3.80-5.20); WHITE BLOOD COUNT 6.6 K/uL (4.1-10.2)
[2016-12-18 05:56] LABS: ANION GAP 3 MEQ/L (2-14); CHLORIDE 110 MEQ/L (99-109); GFR ESTIMATE (CALCULATED) > 59 mL/min/; POTASSIUM 3.5 MEQ/L (3.7-5.4); SAMPLE HEMOLYSIS CHECK 0; SAMPLE ICTERIC CHECK 0; SAMPLE LIPEMIA CHECK 0; SODIUM 137 MEQ/L (136-147); UREA NITROGEN (BUN) 7 mg/dL (9-23)
[2016-12-18 05:58] LABS: GLUCOSE 66 mg/dL (70-99)
[2016-12-18 07:20] VITALS: BP 103/56
[2016-12-18 07:39] LABS: POINT-OF-CARE METER ID UU14174225
[2016-12-18 07:59] LABS: POINT-OF-CARE METER ID UU14174225; POINT-OF-CARE USER ID STWAMT
[2016-12-18 11:06] VITALS: BP 101/53
[2016-12-18 11:27] LABS: POINT-OF-CARE METER ID UU14174225
[2016-12-18 15:03] VITALS: BP 95/61
[2016-12-18 16:13] LABS: POINT-OF-CARE METER ID UU13113717
[2016-12-18 19:13] VITALS: BP 98/64
[2016-12-18 21:39] LABS: POINT-OF-CARE METER ID UU13113717
[2016-12-18 23:29] VITALS: BP 85/52
[2016-12-19] VITALS (7 sets, daily range): BP systolic 82–100; BP diastolic 43–60
[2016-12-19 12:04] LABS: POINT-OF-CARE METER ID UU13113717
[2016-12-19 16:55] LABS: POINT-OF-CARE METER ID UU13113717
[2016-12-19 21:59] LABS: POINT-OF-CARE METER ID UU14188625
[2016-12-20] VITALS (8 sets, daily range): BP systolic 70–93; BP diastolic 39–54
[2016-12-20 07:47] LABS: POINT-OF-CARE METER ID UU13113717
[2016-12-20 08:03] LABS: POINT-OF-CARE METER ID UU13113717
[2016-12-20 09:19] LABS: HEMATOCRIT 29.5 % (36.0-46.0); MCH 33.9 PG (29.0-34.0); MCHC 33.2 G/DL (30.0-36.0); MCV 102.1 FL (83-99); RBC DIS.WIDTH-CV 15.5 % (11.8-14.6); RBC DIS.WIDTH-SD 53.7 % (39-53); RED BLOOD COUNT 2.89 M/uL (3.80-5.20)
[2016-12-20 09:52] LABS: IMM.PLATELET FRACTION 5.9 (1-7); MEAN PLAT.VOLUME 10.3 uM^3 (9.5-12.4); PLAT.SUFFICIENCY DECREASED; PLATELET COUNT 45 K/uL (156-360)
[2016-12-20 10:03] LABS: ANION GAP 4 MEQ/L (2-14); CHLORIDE 110 MEQ/L (99-109); GFR ESTIMATE (CALCULATED) > 59 mL/min/; POTASSIUM 3.5 MEQ/L (3.7-5.4); SAMPLE HEMOLYSIS CHECK 0; SAMPLE ICTERIC CHECK 0; SAMPLE LIPEMIA CHECK 0; SODIUM 138 MEQ/L (136-147); UREA NITROGEN (BUN) 9 mg/dL (9-23)
[2016-12-20 10:04] LABS: GLUCOSE 112 mg/dL (70-99)
[2016-12-20 11:46] LABS: MAGNESIUM 1.4 mg/dl (1.3-2.7)
[2016-12-20 12:28] LABS: POINT-OF-CARE METER ID UU13113717
[2016-12-20 17:10] LABS: POINT-OF-CARE METER ID UU13113717
[2016-12-20 21:29] LABS: POINT-OF-CARE METER ID UU14174225
[2016-12-21 04:19] VITALS: BP 90/51
[2016-12-21 07:45] LABS: POINT-OF-CARE METER ID UU14188625
[2016-12-21 07:54] VITALS: BP 85/43
[2016-12-21 11:27] VITALS: BP 98/50
[2016-12-21 15:02] VITALS: BP 102/58
[2016-12-21 16:32] LABS: POINT-OF-CARE METER ID UU13113717
[2016-12-21 23:48] VITALS: BP 90/64
[2016-12-22 07:25] LABS: POINT-OF-CARE METER ID UU14188625
[2016-12-22 07:33] VITALS: BP 110/58
[2016-12-22 11:10] VITALS: BP 106/64
[2016-12-22 11:12] LABS: POINT-OF-CARE METER ID UU13113717
[2016-12-22 15:01] VITALS: BP 107/58
[2016-12-22 16:35] LABS: POINT-OF-CARE METER ID UU14188625
[2016-12-22 21:27] LABS: POINT-OF-CARE METER ID UU13113717
[2016-12-23 00:02] VITALS: BP 110/52
[2016-12-23 08:10] LABS: POINT-OF-CARE METER ID UU14174225
[2016-12-23 08:18] VITALS: BP 107/56
[2016-12-23] MEDS ORDERED: MIDODRINE HCL5 MG PO (11:09)
[2016-12-23] MEDS ORDERED: HYDROCORTISONE5 MG PO ×2 (11:12)
[2016-12-23] MEDS ORDERED: VANCOCIN HCL125 MG PO (11:26)
== END 2016-12-23 12:57 | disposition home or self-care (01) | DRG 371 ==
LOC: EME 20:44 → EDOF 12-15 00:26 → 5SOUTH 12-15 00:26 → ENRESERV 12-15 00:28 → 5SOUTH 12-15 01:20
PROVIDERS: Emergency Medicine; Internal Medicine; Internal Medicine Gastroenterology; Nurse Practitioner Adult Health; Physician Assistant Medical
DX: A04.7 Enterocolitis due to Clostridium difficile (principal); I81 Portal vein thrombosis; I85.00 Esophageal varices without bleeding; E27.49 Other adrenocortical insufficiency; K76.6 Portal hypertension; D69.6 Thrombocytopenia, unspecified; Q40.2 Other specified congenital malformations of stomach; K70.30 Alcoholic cirrhosis of liver without ascites; K31.89 Other diseases of stomach and duodenum; K72.90 Hepatic failure, unspecified without coma; K64.1 Second degree hemorrhoids; K21.9 Gastro-esophageal reflux disease without esophagitis; J45.909 Unspecified asthma, uncomplicated; E66.01 Morbid (severe) obesity due to excess calories; E11.9 Type 2 diabetes mellitus without complications; F10.10 Alcohol abuse, uncomplicated; F17.210 Nicotine dependence, cigarettes, uncomplicated; E86.0 Dehydration; I10 Essential (primary) hypertension; Z76.82 Awaiting organ transplant status; Z68.32 Body mass index [BMI] 32.0-32.9, adult; Z90.710 Acquired absence of both cervix and uterus; Z85.42 Personal history of malignant neoplasm of other parts of uterus; Z79.4 Long term (current) use of insulin; Z91.19 Patient's noncompliance with other medical treatment and regimen
CPT/HCPCS: 70553; 74000; 74177; 80048; 80053; 80400; 82024 90; 82140; 82533 91; 82948; 83605; 83735; 85014; 85018; 85025; 85027; 85610; 86900; 86901; 86920; 87493; 99281; 99285; J0834; J1100; J1815; J2060; J2250; J2270; J2405; J3010; J3475; J3480; J7030; J7040; J7050; S0030

== ENCOUNTER 2017-01-21 13:17 | Inpatient (IN) | payer BC ==
[~2017-01-21] VITALS: Ht 162.6 cm; Wt 94.0 kg
[2017-01-21] VITALS (7 sets, daily range): BP systolic 104–171; BP diastolic 68–102
[~2017-01-21 13:17] MED LIST changes: +HYDROCORTISONE5 MG PO; +VANCOCIN HCL125 MG PO
[2017-01-21 13:55] LABS: HEMATOCRIT 31.3 % (36.0-46.0); MCH 27.4 PG (29.0-34.0); MCHC 31.6 G/DL (30.0-36.0); MEAN PLAT.VOLUME 11.8 uM^3 (9.5-12.4); RBC DIS.WIDTH-CV 16.1 % (11.8-14.6); RBC DIS.WIDTH-SD 51.2 % (39-53); RED BLOOD COUNT 3.61 M/uL (3.80-5.20); WHITE BLOOD COUNT 9.3 K/uL (4.1-10.2)
[2017-01-21 13:56] LABS: MCV 86.7 FL (83-99); PLATELET COUNT 92 K/uL (156-360)
[2017-01-21 14:07] LABS: CHLORIDE 115 mEq/L (99-109); POTASSIUM 4.4 mEq/L (3.7-5.4); SODIUM 139 mEq/L (136-147)
[2017-01-21 14:09] LABS: GLUCOSE 177 mg/dL (70-99)
[2017-01-21 14:10] LABS: ANION GAP 11 MEQ/L (2-14)
[2017-01-21 14:12] LABS: GFR ESTIMATE (CALCULATED) > 59 mL/min/
[2017-01-21 14:13] LABS: INTER. NORMALIZED RATIO 1.3; PROTHROMBIN TIME 14.5 SEC (10.2-12.9); UREA NITROGEN (BUN) 12 mg/dL (9-23)
[2017-01-21 14:19] LABS: TROP-I INTERPRETATION NEGATIVE; TROPONIN-I < 0.01 ng/mL (0.0-0.30)
[2017-01-21 14:20] LABS: QUANTITATIVE HCG < 4.0 MIU/ML
[2017-01-21 14:45] LABS: ADD MIUA? YES; BILIRUBIN NEGATIVE; BLOOD NEGATIVE; COLOR YELLOW ((YELLOW)); GLUCOSE (STRIP) 50; KETONES NEGATIVE; LEUKOCYTES TRACE; NITRITE NEGATIVE; PROTEIN (STRIP) NEGATIVE; SPECIFIC GRAVITY 1.012 (1.000-1.030); UROBILINOGEN 0.2 MG/DL (0.2-1.0)
[2017-01-21 14:47] LABS: BACTERIA RARE /HPF; EPITHELIAL CELLS RARE /HPF; MUCUS TRACE /LPF; RED BLOOD CELLS 0-5 /HPF (0-5); UCUL ADDED? YES
[2017-01-21 15:45] LABS: BASE EXCESS -9.1 mEq/L (-3 to +3); BICARBONATE 13.9 mEq/L (22-26); CARBOXY HGB 2.1 % (0-5); METHEMOGLOBIN 1.2 % (0-1.5); PO2 136 mm Hg (80-100); pH 7.43 (7.35-7.45)
[2017-01-21 15:46] LABS: COMMENTS - BLOOD GASES A+C+; PCO2 21 mm Hg (35-45); SITE RR
[2017-01-21 18:40] LABS: ANION GAP 6 MEQ/L (2-14); CHLORIDE 119 MEQ/L (99-109); MAGNESIUM 1.6 mg/dl (1.3-2.7); POTASSIUM 5.1 MEQ/L (3.7-5.4); SAMPLE HEMOLYSIS CHECK 0; SAMPLE ICTERIC CHECK 0; SAMPLE LIPEMIA CHECK 0; SODIUM 140 MEQ/L (136-147)
[2017-01-21 18:46] LABS: GFR ESTIMATE (CALCULATED) > 59 mL/min/; GLUCOSE 194 mg/dL (70-99); UREA NITROGEN (BUN) 12 mg/dL (9-23)
[2017-01-21 19:06] LABS: EOSINOPHIL (%) 0.1 % (0-5); HEMATOCRIT 28.8 % (36.0-46.0); IMMATURE GRANULOCYTE (%) 0.8 % (0.0-0.7); IMMATURE GRANULOCYTE COUNT 0.1 K/uL; INSTRUMENT ABS NEUTROPHIL CT 11.3 K/uL; LYMPHOCYTE COUNT 0.9 K/uL (1.0-2.8); MCH 28.5 PG (29.0-34.0); MCHC 31.3 G/DL (30.0-36.0); MEAN PLAT.VOLUME 11.7 uM^3 (9.5-12.4); MONOCYTE (%) 6.4 % (3-12); MONOCYTE COUNT 0.8 K/uL (0-0.8); NEUTROPHIL (%) 85.9 % (45-76); NEUTROPHIL COUNT 11.3 K/uL (1.8-6.4); PLATELET COUNT 91 K/uL (156-360); RBC DIS.WIDTH-CV 16.6 % (11.8-14.6); RBC DIS.WIDTH-SD 55.3 % (39-53); RED BLOOD COUNT 3.16 M/uL (3.80-5.20); WHITE BLOOD COUNT 13.1 K/uL (4.1-10.2)
[2017-01-21 19:13] LABS: MCV 91.1 FL (83-99)
[2017-01-21 19:17] LABS: METH RESISTANT S AUREUS PCR NEGATIVE (NEGATIVE)
[2017-01-21 19:45] LABS: PROBE CHECK PASS; SPECIMEN PROCESSING CONTROL PASS
[2017-01-22] VITALS (30 sets, daily range): BP systolic 81–162; BP diastolic 52–94
[2017-01-22 01:15] LABS: HEMATOCRIT 25.2 % (36.0-46.0); MCV 87.8 FL (83-99)
[2017-01-22 06:02] LABS: BASE EXCESS -9.7 mEq/L (-3 to +3); BICARBONATE 13.6 mEq/L (22-26); CARBOXY HGB 1.9 % (0-5); METHEMOGLOBIN 1.1 % (0-1.5); PCO2 21 mm Hg (35-45); pH 7.42 (7.35-7.45)
[2017-01-22 06:03] LABS: PO2 87 mm Hg (80-100)
[2017-01-22 06:04] LABS: CONTINUOUS POS AIRWAY PRESSURE 5 cm H2O; DEVICE 840; FI02 30 %; MODE SPONT; PRES. SUPPORT 5 CM/H2O; SITE LR; TOTAL RESP RATE 17 resp/min
[2017-01-22 08:09] LABS: INTER. NORMALIZED RATIO 1.4; PROTHROMBIN TIME 15.1 SEC (10.2-12.9)
[2017-01-22 08:11] LABS: PTT 28.1 SEC (25-37)
[2017-01-22 08:36] LABS: ALKALINE PHOSPHATASE 120 IU/L (3-129); ANION GAP 11 MEQ/L (2-14); CHLORIDE 122 MEQ/L (99-109); GFR ESTIMATE (CALCULATED) > 59 mL/min/; GLUCOSE 210 mg/dL (70-99); SAMPLE HEMOLYSIS CHECK 0; SAMPLE ICTERIC CHECK 0; SAMPLE LIPEMIA CHECK 0; SODIUM 144 MEQ/L (136-147); TOTAL BILIRUBIN 1.2 MG/DL (0.0-1.0); UREA NITROGEN (BUN) 11 mg/dL (9-23)
[2017-01-22 08:38] LABS: POTASSIUM 3.8 MEQ/L (3.7-5.4)
[2017-01-22 09:17] LABS: EOSINOPHIL (%) 0.8 % (0-5); EOSINOPHIL COUNT 0.1 K/uL (0-0.3); HEMATOCRIT 24.6 % (36.0-46.0); IMMATURE GRANULOCYTE (%) 0.6 % (0.0-0.7); IMMATURE GRANULOCYTE COUNT 0.1 K/uL; INSTRUMENT ABS NEUTROPHIL CT 8.9 K/uL; LYMPHOCYTE COUNT 1.2 K/uL (1.0-2.8); MCH 28.8 PG (29.0-34.0); MCHC 30.9 G/DL (30.0-36.0); MEAN PLAT.VOLUME 12.6 uM^3 (9.5-12.4); MONOCYTE (%) 11.4 % (3-12); MONOCYTE COUNT 1.3 K/uL (0-0.8); NEUTROPHIL (%) 76.3 % (45-76); NEUTROPHIL COUNT 8.9 K/uL (1.8-6.4); PLAT.SUFFICIENCY DECREASED; RBC DIS.WIDTH-CV 16.8 % (11.8-14.6); RBC DIS.WIDTH-SD 56.4 % (39-53); RED BLOOD COUNT 2.64 M/uL (3.80-5.20); WHITE BLOOD COUNT 11.6 K/uL (4.1-10.2)
[2017-01-22 09:33] LABS: MCV 93.2 FL (83-99); PLATELET COUNT 59 K/uL (156-360)
[2017-01-22 12:21] LABS: POINT-OF-CARE METER ID UU14208751
[2017-01-22 12:56] LABS: HEMATOCRIT 31.1 % (36.0-46.0); MCV 89.4 FL (83-99)
[2017-01-22 18:06] LABS: HEMATOCRIT 29.8 % (36.0-46.0); MCV 88.7 FL (83-99)
[2017-01-23] VITALS (24 sets, daily range): BP systolic 111–140; BP diastolic 58–86
[2017-01-23 00:33] LABS: HEMATOCRIT 30.8 % (36.0-46.0)
[2017-01-23 06:56] LABS: EOSINOPHIL (%) 0.6 % (0-5); EOSINOPHIL COUNT 0.1 K/uL (0-0.3); HEMATOCRIT 29.1 % (36.0-46.0); IMMATURE GRANULOCYTE (%) 0.6 % (0.0-0.7); IMMATURE GRANULOCYTE COUNT 0.1 K/uL; INSTRUMENT ABS NEUTROPHIL CT 10.4 K/uL; LYMPHOCYTE COUNT 1.5 K/uL (1.0-2.8); MCH 28.6 PG (29.0-34.0); MCHC 31.6 G/DL (30.0-36.0); MCV 90.4 FL (83-99); MONOCYTE (%) 10.2 % (3-12); MONOCYTE COUNT 1.4 K/uL (0-0.8); NEUTROPHIL (%) 77.1 % (45-76); NEUTROPHIL COUNT 10.4 K/uL (1.8-6.4); NRBC (%) 0.2 /100 WBC (0-0); RBC DIS.WIDTH-CV 17.6 % (11.8-14.6); RBC DIS.WIDTH-SD 57.2 % (39-53); WHITE BLOOD COUNT 13.5 K/uL (4.1-10.2)
[2017-01-23 06:59] LABS: RED BLOOD COUNT 3.22 M/uL (3.80-5.20)
[2017-01-23 07:18] LABS: ALKALINE PHOSPHATASE 145 IU/L (3-129); ANION GAP 9 MEQ/L (2-14); CHLORIDE 127 MEQ/L (99-109); GFR ESTIMATE (CALCULATED) > 59 mL/min/; GLUCOSE 210 mg/dL (70-99); POTASSIUM 3.3 MEQ/L (3.7-5.4); SAMPLE HEMOLYSIS CHECK 0; SAMPLE ICTERIC CHECK 0; SAMPLE LIPEMIA CHECK 0; SODIUM 151 MEQ/L (136-147); UREA NITROGEN (BUN) 10 mg/dL (9-23)
[2017-01-23 07:27] LABS: HEMATOLOGY COMMENT 1 SN; IMM.PLATELET FRACTION 4.8 (1-7); MEAN PLAT.VOLUME 12.1 uM^3 (9.5-12.4); PLAT.SUFFICIENCY DECREASED; PLATELET COUNT 49 K/uL (156-360)
[2017-01-23 12:53] LABS: HEMATOCRIT 26.6 % (36.0-46.0); MCV 89.3 FL (83-99)
[2017-01-23 18:08] LABS: HEMATOCRIT 26.8 % (36.0-46.0); MCV 89.9 FL (83-99)
[2017-01-23 18:41] LABS: POINT-OF-CARE METER ID UU14208751
[2017-01-23 23:39] LABS: POINT-OF-CARE METER ID UU13113803; POINT-OF-CARE USER ID LABHNS84
[2017-01-24] VITALS (25 sets, daily range): BP systolic 103–147; BP diastolic 50–87
[2017-01-24 00:36] LABS: HEMATOCRIT 28.6 % (36.0-46.0); MCV 89.9 FL (83-99)
[2017-01-24 05:51] LABS: POINT-OF-CARE METER ID UU13113748; POINT-OF-CARE USER ID LABHNS84
[2017-01-24 05:51] LABS: HEMATOCRIT 28.3 % (36.0-46.0); MCH 28.1 PG (29.0-34.0); MCHC 30.7 G/DL (30.0-36.0); MCV 91.3 FL (83-99); MEAN PLAT.VOLUME 11.9 uM^3 (9.5-12.4); PLATELET COUNT 54 K/uL (156-360); RBC DIS.WIDTH-CV 18.4 % (11.8-14.6); RBC DIS.WIDTH-SD 58.3 % (39-53); WHITE BLOOD COUNT 8.9 K/uL (4.1-10.2)
[2017-01-24 06:04] LABS: INTER. NORMALIZED RATIO 1.5; PROTHROMBIN TIME 16.9 SEC (10.2-12.9)
[2017-01-24 06:15] LABS: ALKALINE PHOSPHATASE 145 IU/L (3-129); ANION GAP 6 MEQ/L (2-14); CHLORIDE 134 MEQ/L (99-109); GFR ESTIMATE (CALCULATED) > 59 mL/min/; GLUCOSE 228 mg/dL (70-99); POTASSIUM 2.9 MEQ/L (3.7-5.4); SAMPLE HEMOLYSIS CHECK 0; SAMPLE ICTERIC CHECK 0; SAMPLE LIPEMIA CHECK 0; SODIUM 156 MEQ/L (136-147); UREA NITROGEN (BUN) 8 mg/dL (9-23)
[2017-01-24 12:47] LABS: POINT-OF-CARE METER ID UU13113748
[2017-01-24 12:49] LABS: HEMATOCRIT 27.8 % (36.0-46.0); MCV 91.4 FL (83-99)
[2017-01-24 17:48] LABS: POINT-OF-CARE METER ID UU13113748
[2017-01-24 18:13] LABS: HEMATOCRIT 27.7 % (36.0-46.0)
[2017-01-24 23:27] LABS: SODIUM 153 mEq/L (136-147)
[2017-01-24 23:28] LABS: MAGNESIUM 1.4 mg/dL (1.3-2.7)
[2017-01-24 23:29] LABS: GLUCOSE 217 mg/dL (70-99)
[2017-01-24 23:30] LABS: CHLORIDE 131 mEq/L (99-109)
[2017-01-24 23:31] LABS: ANION GAP 5 MEQ/L (2-14); TOTAL BILIRUBIN 2.3 mg/dL (0.0-1.0)
[2017-01-24 23:33] LABS: ALKALINE PHOSPHATASE 141 IU/L (3-129); GFR ESTIMATE (CALCULATED) > 59 mL/min/
[2017-01-24 23:34] LABS: UREA NITROGEN (BUN) 10 mg/dL (9-23)
[2017-01-25] VITALS (19 sets, daily range): BP systolic 85–134; BP diastolic 51–85
[2017-01-25] LABS: POINT-OF-CARE METER ID UU13113748
[2017-01-25 05:35] LABS: CHLORIDE 127 mEq/L (99-109); SODIUM 150 mEq/L (136-147)
[2017-01-25 05:36] LABS: MAGNESIUM 1.2 mg/dL (1.3-2.7)
[2017-01-25 05:37] LABS: GLUCOSE 181 mg/dL (70-99)
[2017-01-25 05:38] LABS: ANION GAP 4 MEQ/L (2-14)
[2017-01-25 05:41] LABS: GFR ESTIMATE (CALCULATED) > 59 mL/min/
[2017-01-25 05:42] LABS: UREA NITROGEN (BUN) 10 mg/dL (9-23)
[2017-01-25 12:03] LABS: POINT-OF-CARE METER ID UU13113731
[2017-01-25 12:33] LABS: INTER. NORMALIZED RATIO 1.5; PROTHROMBIN TIME 17.3 SEC (10.2-12.9)
[2017-01-25 12:36] LABS: PTT 27.4 SEC (25-37)
[2017-01-25 12:39] LABS: HEMATOCRIT 22.9 % (36.0-46.0)
[2017-01-25 13:19] LABS: CHLORIDE 120 MEQ/L (99-109); GFR ESTIMATE (CALCULATED) > 59 mL/min/; GLUCOSE 299 mg/dL (70-99); SODIUM 141 MEQ/L (136-147); UREA NITROGEN (BUN) 10 mg/dL (9-23)
[2017-01-25 15:31] LABS: BASE EXCESS -7.5 mEq/L (-3 to +3); BICARBONATE 16.2 mEq/L (22-26); CARBOXY HGB 3.5 % (0-5); METHEMOGLOBIN 1.4 % (0-1.5); PCO2 25 mm Hg (35-45); PO2 57 mm Hg (80-100); pH 7.42 (7.35-7.45)
[2017-01-25 15:33] LABS: COMMENTS - BLOOD GASES A+C+; DEVICE NC; O2 FLOW 3 L/MIN; SITE RR
[2017-01-25 17:34] LABS: POINT-OF-CARE METER ID UU13113731
[2017-01-25 17:45] LABS: HEMATOCRIT 23.5 % (36.0-46.0)
[2017-01-25 23:03] LABS: POINT-OF-CARE METER ID UU13113731
[2017-01-26] VITALS (16 sets, daily range): BP systolic 86–111; BP diastolic 45–74
[2017-01-26 01:08] LABS: EOSINOPHIL (%) 1.4 % (0-5); EOSINOPHIL COUNT 0.1 K/uL (0-0.3); HEMATOCRIT 24.6 % (36.0-46.0); IMMATURE GRANULOCYTE (%) 1.9 % (0.0-0.7); IMMATURE GRANULOCYTE COUNT 0.2 K/uL; INSTRUMENT ABS NEUTROPHIL CT 6.9 K/uL; LYMPHOCYTE COUNT 1.1 K/uL (1.0-2.8); MCH 28.1 PG (29.0-34.0); MCHC 31.3 G/DL (30.0-36.0); MCV 89.8 FL (83-99); MEAN PLAT.VOLUME 11.6 uM^3 (9.5-12.4); MONOCYTE (%) 12.6 % (3-12); MONOCYTE COUNT 1.2 K/uL (0-0.8); NEUTROPHIL (%) 72.2 % (45-76); NEUTROPHIL COUNT 6.9 K/uL (1.8-6.4); NRBC (%) 0.4 /100 WBC (0-0); PLATELET COUNT 52 K/uL (156-360); RBC DIS.WIDTH-CV 18.4 % (11.8-14.6); RBC DIS.WIDTH-SD 55.3 % (39-53); RED BLOOD COUNT 2.74 M/uL (3.80-5.20); WHITE BLOOD COUNT 9.5 K/uL (4.1-10.2)
[2017-01-26 05:46] LABS: EOSINOPHIL (%) 2.6 % (0-5); EOSINOPHIL COUNT 0.2 K/uL (0-0.3); HEMATOCRIT 24.1 % (36.0-46.0); IMMATURE GRANULOCYTE (%) 1.6 % (0.0-0.7); IMMATURE GRANULOCYTE COUNT 0.1 K/uL; INSTRUMENT ABS NEUTROPHIL CT 5.6 K/uL; LYMPHOCYTE COUNT 1.4 K/uL (1.0-2.8); MCH 29.2 PG (29.0-34.0); MCHC 32.4 G/DL (30.0-36.0); MCV 90.3 FL (83-99); MEAN PLAT.VOLUME 11.8 uM^3 (9.5-12.4); MONOCYTE (%) 9.1 % (3-12); MONOCYTE COUNT 0.7 K/uL (0-0.8); NEUTROPHIL (%) 69.6 % (45-76); NEUTROPHIL COUNT 5.6 K/uL (1.8-6.4); NRBC (%) 0.6 /100 WBC (0-0); PLATELET COUNT 51 K/uL (156-360); RBC DIS.WIDTH-CV 18.3 % (11.8-14.6); RBC DIS.WIDTH-SD 54.3 % (39-53); RED BLOOD COUNT 2.67 M/uL (3.80-5.20); WHITE BLOOD COUNT 8.1 K/uL (4.1-10.2)
[2017-01-26 05:59] LABS: INTER. NORMALIZED RATIO 1.5; PROTHROMBIN TIME 16.2 SEC (10.2-12.9)
[2017-01-26 06:02] LABS: PTT 36.1 SEC (25-37)
[2017-01-26 06:09] LABS: ANION GAP 8 MEQ/L (2-14); CHLORIDE 115 MEQ/L (99-109); GFR ESTIMATE (CALCULATED) > 59 mL/min/; GLUCOSE 153 mg/dL (70-99); POTASSIUM 3.3 MEQ/L (3.7-5.4); SAMPLE HEMOLYSIS CHECK 0; SAMPLE ICTERIC CHECK 0; SAMPLE LIPEMIA CHECK 0; SODIUM 141 MEQ/L (136-147); UREA NITROGEN (BUN) 9 mg/dL (9-23)
[2017-01-26 08:55] LABS: POINT-OF-CARE METER ID UU13113731
[2017-01-26 12:30] LABS: POINT-OF-CARE METER ID UU13113731
[2017-01-26 12:57] LABS: HEMATOCRIT 24.4 % (36.0-46.0); MCH 28.9 PG (29.0-34.0); MCHC 31.6 G/DL (30.0-36.0); MCV 91.7 FL (83-99); MEAN PLAT.VOLUME 12.1 uM^3 (9.5-12.4); NRBC (%) 0.7 /100 WBC (0-0); PLATELET COUNT 51 K/uL (156-360); RBC DIS.WIDTH-CV 18.9 % (11.8-14.6); RBC DIS.WIDTH-SD 55.8 % (39-53); RED BLOOD COUNT 2.66 M/uL (3.80-5.20); WHITE BLOOD COUNT 8.8 K/uL (4.1-10.2)
[2017-01-26 17:13] LABS: POINT-OF-CARE METER ID UU13113731
[2017-01-26 18:06] LABS: MCV 91.9 FL (83-99)
[2017-01-26 22:35] LABS: POINT-OF-CARE METER ID UU13113731
[2017-01-27] VITALS (12 sets, daily range): BP systolic 78–138; BP diastolic 43–67
[2017-01-27 00:23] LABS: HEMATOCRIT 26.7 % (36.0-46.0); MCV 89.6 FL (83-99)
[2017-01-27 08:02] LABS: EOSINOPHIL (%) 2.4 % (0-5); EOSINOPHIL COUNT 0.2 K/uL (0-0.3); IMMATURE GRANULOCYTE (%) 2.9 % (0.0-0.7); IMMATURE GRANULOCYTE COUNT 0.3 K/uL; INSTRUMENT ABS NEUTROPHIL CT 6.5 K/uL; LYMPHOCYTE COUNT 1.7 K/uL (1.0-2.8); MCH 30.2 PG (29.0-34.0); MCHC 32.8 G/DL (30.0-36.0); MCV 92.1 FL (83-99); MEAN PLAT.VOLUME 10.9 uM^3 (9.5-12.4); MONOCYTE COUNT 0.9 K/uL (0-0.8); NEUTROPHIL (%) 68.1 % (45-76); NEUTROPHIL COUNT 6.5 K/uL (1.8-6.4); NRBC (%) 0.4 /100 WBC (0-0); PLATELET COUNT 60 K/uL (156-360); RBC DIS.WIDTH-SD 55.7 % (39-53); RED BLOOD COUNT 3.15 M/uL (3.80-5.20); WHITE BLOOD COUNT 9.6 K/uL (4.1-10.2)
[2017-01-27 09:14] LABS: POINT-OF-CARE METER ID UU14107333
[2017-01-27 09:46] LABS: ANION GAP 6 MEQ/L (2-14); CHLORIDE 115 MEQ/L (99-109); GFR ESTIMATE (CALCULATED) > 59 mL/min/; POTASSIUM 3.2 MEQ/L (3.7-5.4); SAMPLE HEMOLYSIS CHECK 0; SAMPLE ICTERIC CHECK 0; SAMPLE LIPEMIA CHECK 0; SODIUM 141 MEQ/L (136-147); UREA NITROGEN (BUN) 8 mg/dL (9-23)
[2017-01-27 09:47] LABS: GLUCOSE 84 mg/dL (70-99)
[2017-01-27 11:21] LABS: POINT-OF-CARE METER ID UU14107333
[2017-01-27 11:50] LABS: POINT-OF-CARE METER ID UU13113819
[2017-01-27 17:43] LABS: POINT-OF-CARE METER ID UU13113803
[2017-01-27 21:39] LABS: POINT-OF-CARE METER ID UU14162636
[2017-01-28] VITALS (8 sets, daily range): BP systolic 93–109; BP diastolic 53–70
[2017-01-28 04:48] LABS: HEMATOCRIT 29.3 % (36.0-46.0); MCH 28.7 PG (29.0-34.0); MCHC 31.4 G/DL (30.0-36.0); MCV 91.3 FL (83-99); MEAN PLAT.VOLUME 10.5 uM^3 (9.5-12.4); NRBC (%) 0.9 /100 WBC (0-0); PLATELET COUNT 53 K/uL (156-360); RBC DIS.WIDTH-CV 20.2 % (11.8-14.6); RBC DIS.WIDTH-SD 55.5 % (39-53); RED BLOOD COUNT 3.21 M/uL (3.80-5.20); WHITE BLOOD COUNT 6.9 K/uL (4.1-10.2)
[2017-01-28 04:53] LABS: EOSINOPHIL COUNT 0.1 K/uL (0-0.3); IMMATURE GRANULOCYTE (%) 2.8 % (0.0-0.7); IMMATURE GRANULOCYTE COUNT 0.2 K/uL; INSTRUMENT ABS NEUTROPHIL CT 5.7 K/uL; LYMPHOCYTE COUNT 0.8 K/uL (1.0-2.8); MONOCYTE (%) 1.9 % (3-12); MONOCYTE COUNT 0.1 K/uL (0-0.8); NEUTROPHIL (%) 82.4 % (45-76); NEUTROPHIL COUNT 5.7 K/uL (1.8-6.4)
[2017-01-28 05:03] LABS: POTASSIUM 3.3 mEq/L (3.7-5.4); SODIUM 137 mEq/L (136-147)
[2017-01-28 05:04] LABS: GLUCOSE 99 mg/dL (70-99)
[2017-01-28 05:06] LABS: ANION GAP 10 MEQ/L (2-14)
[2017-01-28 05:08] LABS: GFR ESTIMATE (CALCULATED) > 59 mL/min/
[2017-01-28 05:09] LABS: UREA NITROGEN (BUN) 6 mg/dL (9-23)
[2017-01-28 05:25] LABS: CHLORIDE 114 mEq/L (99-109)
[2017-01-28 12:10] LABS: POINT-OF-CARE METER ID UU13113748
[2017-01-28 13:23] LABS: ANION GAP 4 MEQ/L (2-14); CHLORIDE 114 MEQ/L (99-109); GFR ESTIMATE (CALCULATED) > 59 mL/min/; POTASSIUM 3.4 MEQ/L (3.7-5.4); SAMPLE HEMOLYSIS CHECK 0; SAMPLE ICTERIC CHECK 0; SAMPLE LIPEMIA CHECK 0; SODIUM 137 MEQ/L (136-147); TOTAL BILIRUBIN 1.8 MG/DL (0.0-1.0); UREA NITROGEN (BUN) 7 mg/dL (9-23)
[2017-01-28 13:25] LABS: ALKALINE PHOSPHATASE 96 IU/L (3-129); GLUCOSE 163 mg/dL (70-99); MAGNESIUM 1.5 mg/dl (1.3-2.7)
[2017-01-28 16:25] LABS: POINT-OF-CARE METER ID UU13113774
[2017-01-28 22:05] LABS: POINT-OF-CARE METER ID UU13113725
[2017-01-29 00:05] VITALS: BP 109/55
[2017-01-29 04:15] VITALS: BP 104/56
[2017-01-29 05:46] LABS: POINT-OF-CARE METER ID UU13113774
[2017-01-29 06:31] LABS: MCH 28.1 PG (29.0-34.0); MCV 93.5 FL (83-99); RBC DIS.WIDTH-CV 21.1 % (11.8-14.6); RBC DIS.WIDTH-SD 59.4 % (39-53); RED BLOOD COUNT 2.78 M/uL (3.80-5.20); WHITE BLOOD COUNT 4.9 K/uL (4.1-10.2)
[2017-01-29 07:01] LABS: ANION GAP 5 MEQ/L (2-14); CHLORIDE 115 MEQ/L (99-109); GFR ESTIMATE (CALCULATED) > 59 mL/min/; GLUCOSE 128 mg/dL (70-99); MAGNESIUM 1.5 mg/dl (1.3-2.7); POTASSIUM 3.6 MEQ/L (3.7-5.4); SAMPLE HEMOLYSIS CHECK 0; SAMPLE ICTERIC CHECK 0; SAMPLE LIPEMIA CHECK 0; SODIUM 141 MEQ/L (136-147); UREA NITROGEN (BUN) 7 mg/dL (9-23)
[2017-01-29 07:20] VITALS: BP 119/68
[2017-01-29 07:24] LABS: EOSINOPHIL (%) 1.8 % (0-5); EOSINOPHIL COUNT 0.1 K/uL (0-0.3); IMM.PLATELET FRACTION 5.1 (1-7); IMMATURE GRANULOCYTE (%) 1.2 % (0.0-0.7); IMMATURE GRANULOCYTE COUNT 0.1 K/uL; INSTRUMENT ABS NEUTROPHIL CT 3.2 K/uL; MEAN PLAT.VOLUME 11.1 uM^3 (9.5-12.4); MONOCYTE (%) 10.4 % (3-12); MONOCYTE COUNT 0.5 K/uL (0-0.8); NEUTROPHIL COUNT 3.2 K/uL (1.8-6.4); PLAT.SUFFICIENCY DECREASED; PLATELET COUNT 44 K/uL (156-360)
[2017-01-29 11:00] VITALS: BP 91/52
[2017-01-29 11:43] LABS: POINT-OF-CARE METER ID UU13113725
[2017-01-29 12:32] LABS: HEMATOCRIT 26.8 % (36.0-46.0); MCHC 30.6 G/DL (30.0-36.0); MCV 94.7 FL (83-99); RBC DIS.WIDTH-CV 21.4 % (11.8-14.6); RBC DIS.WIDTH-SD 62.6 % (39-53); RED BLOOD COUNT 2.83 M/uL (3.80-5.20); WHITE BLOOD COUNT 6.4 K/uL (4.1-10.2)
[2017-01-29 13:05] LABS: IMM.PLATELET FRACTION 7.3 (1-7); MEAN PLAT.VOLUME 12.2 uM^3 (9.5-12.4); PLAT.SUFFICIENCY DECREASED; PLATELET COUNT 48 K/uL (156-360)
[2017-01-29 15:12] VITALS: BP 94/62
[2017-01-29 16:02] LABS: ALKALINE PHOSPHATASE 108 IU/L (3-129); LIPASE 48 U/L (1.0-51.0); TOTAL BILIRUBIN 1.6 MG/DL (0.0-1.0)
[2017-01-29 16:11] LABS: MCH 28.4 PG (29.0-34.0); MCHC 30.4 G/DL (30.0-36.0); MCV 93.4 FL (83-99); MEAN PLAT.VOLUME 12.4 uM^3 (9.5-12.4); PLATELET COUNT 54 K/uL (156-360); RBC DIS.WIDTH-CV 21.5 % (11.8-14.6); RBC DIS.WIDTH-SD 61.4 % (39-53); RED BLOOD COUNT 2.89 M/uL (3.80-5.20); WHITE BLOOD COUNT 5.9 K/uL (4.1-10.2)
[2017-01-29 16:47] LABS: POINT-OF-CARE METER ID UU13113774
[2017-01-29 16:55] LABS: ADD MIUA? NO; BILIRUBIN NEGATIVE; BLOOD NEGATIVE; COLOR YELLOW ((YELLOW)); GLUCOSE (STRIP) NEGATIVE; KETONES NEGATIVE; LEUKOCYTES NEGATIVE; NITRITE NEGATIVE; PROTEIN (STRIP) NEGATIVE; SPECIFIC GRAVITY 1.018 (1.000-1.030); UROBILINOGEN 0.2 MG/DL (0.2-1.0)
[2017-01-29 16:58] LABS: UCUL ADDED? NO
[2017-01-29 18:53] LABS: TYPE OF FLUID PERITONEAL
[2017-01-29 19:30] LABS: BODY FLUID EOSINOPHILS 0 % (0-25); BODY FLUID RBC'S < 1000 /MM^3 (0-100); BODY FLUID WBC'S 143 /MM^3 (0-500); COMMENT MANY MACROPHAGES SEEN; MONONUCLEAR WBC'S 27 %; POLYNUCLEAR WBC'S 73 % (0-25)
[2017-01-29 19:43] LABS: BODY FLUID LDH 25 IU/L; BODY FLUID PROTEIN < 3.0 G/DL
[2017-01-29 20:00] VITALS: BP 98/57
[2017-01-29 20:22] LABS: POINT-OF-CARE METER ID UU13113725
[2017-01-30] VITALS (9 sets, daily range): BP systolic 76–104; BP diastolic 37–58
[2017-01-30 06:15] LABS: POINT-OF-CARE METER ID UU13113774
[2017-01-30 06:43] LABS: EOSINOPHIL (%) 2.3 % (0-5); EOSINOPHIL COUNT 0.1 K/uL (0-0.3); HEMATOCRIT 27.4 % (36.0-46.0); IMMATURE GRANULOCYTE (%) 0.7 % (0.0-0.7); INSTRUMENT ABS NEUTROPHIL CT 2.7 K/uL; MCH 28.7 PG (29.0-34.0); MCHC 30.7 G/DL (30.0-36.0); MCV 93.5 FL (83-99); MONOCYTE (%) 12.2 % (3-12); MONOCYTE COUNT 0.5 K/uL (0-0.8); NEUTROPHIL (%) 61.4 % (45-76); NEUTROPHIL COUNT 2.7 K/uL (1.8-6.4); RBC DIS.WIDTH-CV 21.4 % (11.8-14.6); RED BLOOD COUNT 2.93 M/uL (3.80-5.20); WHITE BLOOD COUNT 4.4 K/uL (4.1-10.2)
[2017-01-30 07:09] LABS: ANION GAP 7 MEQ/L (2-14); CHLORIDE 110 MEQ/L (99-109); GFR ESTIMATE (CALCULATED) > 59 mL/min/; MAGNESIUM 1.5 mg/dl (1.3-2.7); POTASSIUM 3.5 MEQ/L (3.7-5.4); SAMPLE HEMOLYSIS CHECK 0; SAMPLE ICTERIC CHECK 0; SAMPLE LIPEMIA CHECK 0; SODIUM 139 MEQ/L (136-147); UREA NITROGEN (BUN) 6 mg/dL (9-23)
[2017-01-30 07:10] LABS: GLUCOSE 93 mg/dL (70-99)
[2017-01-30 07:57] LABS: IMM.PLATELET FRACTION 6.6 (1-7); MEAN PLAT.VOLUME 11.5 uM^3 (9.5-12.4); PLAT.SUFFICIENCY DECREASED; PLATELET COUNT 49 K/uL (156-360)
[2017-01-30 11:27] LABS: POINT-OF-CARE METER ID UU13113725
[2017-01-30 16:38] LABS: POINT-OF-CARE METER ID UU13113725
[2017-01-30 22:11] LABS: POINT-OF-CARE METER ID UU13113774
[2017-01-31 04:06] VITALS: BP 96/58
[2017-01-31 06:06] LABS: POINT-OF-CARE METER ID UU13113725
[2017-01-31 06:45] LABS: EOSINOPHIL (%) 1.7 % (0-5); EOSINOPHIL COUNT 0.1 K/uL (0-0.3); HEMATOCRIT 24.7 % (36.0-46.0); IMMATURE GRANULOCYTE (%) 0.3 % (0.0-0.7); INSTRUMENT ABS NEUTROPHIL CT 2.1 K/uL; LYMPHOCYTE COUNT 0.9 K/uL (1.0-2.8); MCH 29.3 PG (29.0-34.0); MCHC 31.6 G/DL (30.0-36.0); MCV 92.9 FL (83-99); MONOCYTE (%) 9.9 % (3-12); MONOCYTE COUNT 0.3 K/uL (0-0.8); NEUTROPHIL (%) 62.1 % (45-76); NEUTROPHIL COUNT 2.1 K/uL (1.8-6.4); RBC DIS.WIDTH-CV 20.8 % (11.8-14.6); RBC DIS.WIDTH-SD 65.3 % (39-53); RED BLOOD COUNT 2.66 M/uL (3.80-5.20); WHITE BLOOD COUNT 3.4 K/uL (4.1-10.2)
[2017-01-31 07:21] LABS: ANION GAP 5 MEQ/L (2-14); CHLORIDE 111 MEQ/L (99-109); GFR ESTIMATE (CALCULATED) > 59 mL/min/; GLUCOSE 110 mg/dL (70-99); POTASSIUM 3.7 MEQ/L (3.7-5.4); SAMPLE HEMOLYSIS CHECK 0; SAMPLE ICTERIC CHECK 0; SAMPLE LIPEMIA CHECK 0; SODIUM 140 MEQ/L (136-147); UREA NITROGEN (BUN) 8 mg/dL (9-23)
[2017-01-31 07:44] LABS: IMM.PLATELET FRACTION 7.3 (1-7); MEAN PLAT.VOLUME 11.5 uM^3 (9.5-12.4); PLAT.SUFFICIENCY DECREASED; PLATELET COUNT 48 K/uL (156-360)
[2017-01-31 08:25] VITALS: BP 93/55
[2017-01-31 11:00] VITALS: BP 95/51
[2017-01-31 11:42] LABS: POINT-OF-CARE METER ID UU13113725
[2017-01-31 12:33] LABS: HEMATOCRIT 29.6 % (36.0-46.0); MCV 93.7 FL (83-99)
[2017-01-31 15:54] VITALS: BP 88/50
[2017-01-31 16:45] LABS: POINT-OF-CARE METER ID UU13113774
[2017-01-31 20:57] VITALS: BP 108/55
[2017-01-31 21:44] LABS: POINT-OF-CARE METER ID UU13113725
[2017-01-31 23:40] VITALS: BP 116/59
[2017-02-01 06:16] LABS: POINT-OF-CARE METER ID UU13113725
[2017-02-01 07:50] VITALS: BP 108/56
[2017-02-01 12:37] LABS: POINT-OF-CARE METER ID UU13113725
[2017-02-01 16:03] VITALS: BP 109/55
[2017-02-01 17:18] LABS: POINT-OF-CARE METER ID UU13113725
[2017-02-01 19:02] VITALS: BP 102/55
[2017-02-01 20:57] LABS: POINT-OF-CARE METER ID UU13113774
[2017-02-01 22:44] VITALS: BP 92/50
[2017-02-02 06:01] LABS: POINT-OF-CARE METER ID UU13113774
[2017-02-02 07:47] VITALS: BP 99/55
[2017-02-02 11:08] LABS: POINT-OF-CARE METER ID UU13113774
[2017-02-02 13:42] VITALS: BP 87/51
[2017-02-02 13:44] VITALS: BP 98/54
[2017-02-02] MEDS ORDERED: MIDODRINE HCL5 MG PO (14:41)
[2017-02-02] MEDS ORDERED: HYDROCORTISONE5 MG PO ×2 (14:41)
== END 2017-02-02 16:27 | disposition home or self-care (01) | DRG 208 ==
LOC: EME 13:17 → EDOF 16:07 → 4WEST 16:07 → 5EAST 16:07 → ENRESERV 16:08 → 4WEST 17:10 → ENRESERV 01-28 10:54 → 5EAST 01-28 12:10
PROVIDERS: Emergency Medicine; Hospitalist; Internal Medicine; Internal Medicine Gastroenterology; Internal Medicine Nephrology; Obstetrics & Gynecology; Specialist; Student in an Organized Health Care Education/Training Program
PROC: 0BH17EZ Insertion of Endotracheal Airway into Trachea, Via Natural or Artificial Opening (ICD-10-PCS; principal; 2017-01-21)
PROC: 5A1945Z Respiratory Ventilation, 24-96 Consecutive Hours (ICD-10-PCS; principal; 2017-01-21)
PROC: 0DJ08ZZ Inspection of Upper Intestinal Tract, Via Natural or Artificial Opening Endoscopic (ICD-10-PCS; 2017-01-22)
PROC: 30233N1 Transfusion of Nonautologous Red Blood Cells into Peripheral Vein, Percutaneous Approach (ICD-10-PCS; 2017-01-22)
PROC: 0DBN8ZX Excision of Sigmoid Colon, Via Natural or Artificial Opening Endoscopic, Diagnostic (ICD-10-PCS; 2017-01-27)
PROC: 0W9G3ZZ Drainage of Peritoneal Cavity, Percutaneous Approach (ICD-10-PCS; 2017-01-29)
DX: J69.0 Pneumonitis due to inhalation of food and vomit (principal); J96.00 Acute respiratory failure, unspecified whether with hypoxia or hypercapnia; K70.31 Alcoholic cirrhosis of liver with ascites; K72.90 Hepatic failure, unspecified without coma; K76.6 Portal hypertension; Z76.82 Awaiting organ transplant status; D50.0 Iron deficiency anemia secondary to blood loss (chronic); D69.59 Other secondary thrombocytopenia; I85.00 Esophageal varices without bleeding; E87.4 Mixed disorder of acid-base balance; E83.51 Hypocalcemia; E87.0 Hyperosmolality and hypernatremia; E87.6 Hypokalemia; D68.9 Coagulation defect, unspecified; E83.42 Hypomagnesemia; E83.39 Other disorders of phosphorus metabolism; N18.6 End stage renal disease; E11.22 Type 2 diabetes mellitus with diabetic chronic kidney disease; E11.649 Type 2 diabetes mellitus with hypoglycemia without coma; F17.210 Nicotine dependence, cigarettes, uncomplicated; K21.9 Gastro-esophageal reflux disease without esophagitis; G40.909 Epilepsy, unspecified, not intractable, without status epilepticus; E27.40 Unspecified adrenocortical insufficiency; J45.909 Unspecified asthma, uncomplicated; K31.89 Other diseases of stomach and duodenum; A04.72 Enterocolitis due to Clostridium difficile, not specified as recurrent; K64.9 Unspecified hemorrhoids; Z68.31 Body mass index [BMI] 31.0-31.9, adult; Z85.42 Personal history of malignant neoplasm of other parts of uterus; Z90.710 Acquired absence of both cervix and uterus
CPT/HCPCS: 36600; 49083; 71010; 74000; 74178; 80048; 80048 91; 80053; 80306 90; 80400; 81003; 82024 90; 82042 90; 82140; 82150 91; 82533 91; 82803; 82948; 83605; 83615 91; 83690; 83735; 84100; 84157; 84295; 84484; 84702; 85014; 85018; 85025; 85025 91; 85027; 85610; 85730; 86850; 86900; 86901; 86920; 87040; 87070; 87077; 87086; 87186; 87205; 87641; 88108; 88305; 89051; 93005; 94002; 94003; 94640 76; 94760; 94799; 97530 GO; 97530 GP; 99202; 99281; 99285; C1753; C9113; G0480; J0610; J0696; J0834; J1815; J1940; J2060; J2250; J2270; J2354; J2704; J3010; J3475; J3480; J7030; J7040; J7042; J7050; J7120; P9016; P9047

== ENCOUNTER 2017-03-09 11:27 | Inpatient (IN) | payer BC ==
[2017-03-09] VITALS (10 sets, daily range): BP systolic 114–151; BP diastolic 66–83
[~2017-03-09] VITALS: Ht 160 cm; Wt 78.2 kg
[2017-03-09 11:59] LABS: HEMATOCRIT 31.5 % (36.0-46.0); MCH 23.8 PG (29.0-34.0); MCHC 29.5 G/DL (30.0-36.0); MCV 80.6 FL (83-99); PLATELET COUNT 116 K/uL (156-360); RBC DIS.WIDTH-CV 20.2 % (11.8-14.6); RBC DIS.WIDTH-SD 58.8 % (39-53); RED BLOOD COUNT 3.91 M/uL (3.80-5.20); WHITE BLOOD COUNT 9.6 K/uL (4.1-10.2)
[2017-03-09 12:00] LABS: CHLORIDE 113 mEq/L (99-109); POTASSIUM 4.1 mEq/L (3.7-5.4); SODIUM 140 mEq/L (136-147)
[2017-03-09 12:03] LABS: GLUCOSE 206 mg/dL (70-99)
[2017-03-09 12:04] LABS: ANION GAP 12 MEQ/L (2-14); TOTAL BILIRUBIN 2.4 mg/dL (0.0-1.0)
[2017-03-09 12:05] LABS: SERUM ETHYL ALCOHOL < 10 mg/dL
[2017-03-09 12:06] LABS: ALKALINE PHOSPHATASE 211 IU/L (3-129); GFR ESTIMATE (CALCULATED) > 59 mL/min/
[2017-03-09 12:07] LABS: UREA NITROGEN (BUN) 19 mg/dL (9-23)
[2017-03-09 12:09] LABS: CREATINE KINASE 145 IU/L (1-294); TOTAL CK 145 IU/L (1-294)
[2017-03-09 12:10] LABS: TROP-I INTERPRETATION NEGATIVE; TROPONIN-I < 0.01 ng/mL (0.0-0.30)
[2017-03-09 12:14] LABS: INTER. NORMALIZED RATIO 1.4; PROTHROMBIN TIME 16.4 SEC (10.2-12.9)
[2017-03-09 12:15] LABS: CK-MB 2.8 ng/mL (0.0-4.9)
[2017-03-09 12:51] LABS: ADD MIUA? YES; BILIRUBIN NEGATIVE; BLOOD NEGATIVE; COLOR YELLOW ((YELLOW)); GLUCOSE (STRIP) 50; KETONES 5; LEUKOCYTES MODERATE; NITRITE POSITIVE; PROTEIN (STRIP) 30; SPECIFIC GRAVITY 1.015 (1.000-1.030)
[2017-03-09 13:18] LABS: BACTERIA NONE SEEN /HPF; EPITHELIAL CELLS RARE /HPF; MUCUS TRACE /LPF; RED BLOOD CELLS 0-5 /HPF (0-5); UCUL ADDED? YES; WHITE BLOOD CELLS TNTC /HPF (0-5)
[2017-03-09] MEDS ORDERED: BUPROPION HCL100 M1 PO (13:51)
[2017-03-09 17:43] LABS: POINT-OF-CARE METER ID UU13113702
[2017-03-09 18:56] LABS: ANION GAP 10 MEQ/L (2-14); CHLORIDE 119 MEQ/L (99-109); POTASSIUM 3.5 MEQ/L (3.7-5.4); SAMPLE HEMOLYSIS CHECK 0; SAMPLE ICTERIC CHECK 0; SAMPLE LIPEMIA CHECK 0; SODIUM 144 MEQ/L (136-147); TOTAL BILIRUBIN 1.9 MG/DL (0.0-1.0)
[2017-03-09 19:01] LABS: ALKALINE PHOSPHATASE 167 IU/L (3-129); GFR ESTIMATE (CALCULATED) > 59 mL/min/; GLUCOSE 144 mg/dL (70-99); UREA NITROGEN (BUN) 18 mg/dL (9-23)
[2017-03-09 19:34] LABS: METH RESISTANT S AUREUS PCR NEGATIVE (NEGATIVE)
[2017-03-09 19:40] LABS: PROBE CHECK PASS; SPECIMEN PROCESSING CONTROL PASS
[2017-03-09 20:44] LABS: SALICYLATE < 3.0 MG/DL (15-30)
[2017-03-09] MEDS ORDERED: LANTUS 3 M100 UNITS1 SC (21:35)
[2017-03-10] VITALS (22 sets, daily range): BP systolic 106–163; BP diastolic 60–93
[2017-03-10 06:06] LABS: INTER. NORMALIZED RATIO 1.5; PROTHROMBIN TIME 17.2 SEC (10.2-12.9)
[2017-03-10 06:21] LABS: HEMATOCRIT 24.8 % (36.0-46.0); MCH 22.8 PG (29.0-34.0); MCHC 28.2 G/DL (30.0-36.0); MCV 80.8 FL (83-99); RBC DIS.WIDTH-CV 20.6 % (11.8-14.6); RBC DIS.WIDTH-SD 59.7 % (39-53); WHITE BLOOD COUNT 6.5 K/uL (4.1-10.2)
[2017-03-10 06:22] LABS: RED BLOOD COUNT 3.07 M/uL (3.80-5.20)
[2017-03-10 06:51] LABS: PLAT.SUFFICIENCY DECREASED; PLATELET COUNT 70 K/uL (156-360)
[2017-03-10 07:27] LABS: ANION GAP 8 MEQ/L (2-14); CHLORIDE 126 MEQ/L (99-109); GFR ESTIMATE (CALCULATED) > 59 mL/min/; GLUCOSE 130 mg/dL (70-99); POTASSIUM 3.5 MEQ/L (3.7-5.4); SAMPLE HEMOLYSIS CHECK 0; SAMPLE ICTERIC CHECK 0; SAMPLE LIPEMIA CHECK 0; SODIUM 150 MEQ/L (136-147); UREA NITROGEN (BUN) 17 mg/dL (9-23)
[2017-03-11] VITALS (27 sets, daily range): BP systolic 101–141; BP diastolic 46–94
[2017-03-11 06:02] LABS: EOSINOPHIL (%) 1.8 % (0-5); EOSINOPHIL COUNT 0.1 K/uL (0-0.3); HEMATOCRIT 21.6 % (36.0-46.0); IMMATURE GRANULOCYTE (%) 0.3 % (0.0-0.7); INSTRUMENT ABS NEUTROPHIL CT 1.9 K/uL; LYMPHOCYTE COUNT 0.9 K/uL (1.0-2.8); MCH 23.5 PG (29.0-34.0); MCHC 28.2 G/DL (30.0-36.0); MCV 83.1 FL (83-99); MEAN PLAT.VOLUME 9.9 uM^3 (9.5-12.4); MONOCYTE (%) 14.6 % (3-12); MONOCYTE COUNT 0.5 K/uL (0-0.8); NEUTROPHIL (%) 55.9 % (45-76); NEUTROPHIL COUNT 1.9 K/uL (1.8-6.4); PLATELET COUNT 53 K/uL (156-360); RBC DIS.WIDTH-CV 21.2 % (11.8-14.6); RBC DIS.WIDTH-SD 62.6 % (39-53); WHITE BLOOD COUNT 3.4 K/uL (4.1-10.2)
[2017-03-11 06:40] LABS: ALKALINE PHOSPHATASE 131 IU/L (3-129); ANION GAP 8 MEQ/L (2-14); CHLORIDE 128 MEQ/L (99-109); GFR ESTIMATE (CALCULATED) > 59 mL/min/; GLUCOSE 116 mg/dL (70-99); POTASSIUM 3.2 MEQ/L (3.7-5.4); SAMPLE HEMOLYSIS CHECK 0; SAMPLE ICTERIC CHECK 0; SAMPLE LIPEMIA CHECK 0; SODIUM 152 MEQ/L (136-147); TOTAL BILIRUBIN 1.8 MG/DL (0.0-1.0); UREA NITROGEN (BUN) 14 mg/dL (9-23)
[2017-03-11 13:41] LABS: HEMATOCRIT 31.6 % (36.0-46.0); MCV 84.9 FL (83-99)
[2017-03-11 16:45] LABS: ANION GAP 7 MEQ/L (2-14); GFR ESTIMATE (CALCULATED) > 59 mL/min/; POTASSIUM 3.4 MEQ/L (3.7-5.4); SAMPLE HEMOLYSIS CHECK 0; SAMPLE ICTERIC CHECK 2; SAMPLE LIPEMIA CHECK 0; UREA NITROGEN (BUN) 12 mg/dL (9-23)
[2017-03-11 16:46] LABS: CHLORIDE 114 MEQ/L (99-109); GLUCOSE 225 mg/dL (70-99); SODIUM 137 MEQ/L (136-147)
[2017-03-11 22:45] LABS: POINT-OF-CARE METER ID UU14314082
[2017-03-12] VITALS: BP 129/78
[2017-03-12 04:00] VITALS: BP 110/69
[2017-03-12 05:39] LABS: EOSINOPHIL (%) 3.2 % (0-5); EOSINOPHIL COUNT 0.2 K/uL (0-0.3); HEMATOCRIT 26.8 % (36.0-46.0); IMMATURE GRANULOCYTE (%) 0.4 % (0.0-0.7); INSTRUMENT ABS NEUTROPHIL CT 3.1 K/uL; LYMPHOCYTE COUNT 0.8 K/uL (1.0-2.8); MCH 24.6 PG (29.0-34.0); MCHC 30.6 G/DL (30.0-36.0); MONOCYTE COUNT 0.5 K/uL (0-0.8); NEUTROPHIL (%) 67.3 % (45-76); NEUTROPHIL COUNT 3.1 K/uL (1.8-6.4); NRBC (%) 0.6 /100 WBC (0-0); RBC DIS.WIDTH-CV 19.7 % (11.8-14.6); WHITE BLOOD COUNT 4.6 K/uL (4.1-10.2)
[2017-03-12 05:40] LABS: MCV 80.2 FL (83-99); RED BLOOD COUNT 3.34 M/uL (3.80-5.20)
[2017-03-12 05:54] LABS: ANION GAP 8 MEQ/L (2-14); CHLORIDE 111 MEQ/L (99-109); GFR ESTIMATE (CALCULATED) > 59 mL/min/; MAGNESIUM 1.6 mg/dl (1.3-2.7); SAMPLE HEMOLYSIS CHECK 0; SAMPLE ICTERIC CHECK 0; SAMPLE LIPEMIA CHECK 0; SODIUM 137 MEQ/L (136-147); UREA NITROGEN (BUN) 7 mg/dL (9-23)
[2017-03-12 05:55] LABS: GLUCOSE 109 mg/dL (70-99)
[2017-03-12 07:08] LABS: IMM.PLATELET FRACTION 6.3 (1-7); PLAT.SUFFICIENCY DECREASED; PLATELET COUNT 48 K/uL (156-360)
[2017-03-12 08:00] VITALS: BP 117/67
[2017-03-12 08:32] LABS: POINT-OF-CARE METER ID UU13113748
[2017-03-12 12:00] VITALS: BP 102/74
[2017-03-12] MEDS ORDERED: PROAIR HFA8.5 GM IH (12:15)
[2017-03-12] MEDS ORDERED: ZINC GLUCONATE100 MG PO (12:16)
[2017-03-12 12:18] LABS: POINT-OF-CARE METER ID UU14208751
[2017-03-12 14:19] VITALS: BP 132/65
[2017-03-12 16:14] VITALS: BP 100/61
[2017-03-12 17:29] LABS: POINT-OF-CARE METER ID UU14174225
[2017-03-12 20:51] LABS: POINT-OF-CARE METER ID UU14188625
[2017-03-13 00:07] VITALS: BP 110/61
[2017-03-13 06:38] LABS: HEMATOCRIT 27.1 % (36.0-46.0); MCHC 29.5 G/DL (30.0-36.0); MCV 81.1 FL (83-99); NRBC (%) 0.8 /100 WBC (0-0); RBC DIS.WIDTH-SD 57.2 % (39-53); RED BLOOD COUNT 3.34 M/uL (3.80-5.20)
[2017-03-13 06:54] LABS: PLAT.SUFFICIENCY DECREASED; PLATELET COUNT 54 K/uL (156-360)
[2017-03-13 07:02] LABS: ANION GAP 8 MEQ/L (2-14); CHLORIDE 110 MEQ/L (99-109); GFR ESTIMATE (CALCULATED) > 59 mL/min/; GLUCOSE 136 mg/dL (70-99); MAGNESIUM 1.6 mg/dl (1.3-2.7); POTASSIUM 3.2 MEQ/L (3.7-5.4); SAMPLE HEMOLYSIS CHECK 0; SAMPLE ICTERIC CHECK 0; SAMPLE LIPEMIA CHECK 0; SODIUM 137 MEQ/L (136-147); UREA NITROGEN (BUN) 5 mg/dL (9-23)
[2017-03-13 07:18] VITALS: BP 107/53
[2017-03-13] MEDS ORDERED: CEFDINIR300 MG PO (08:01)
[2017-03-13 12:11] LABS: POINT-OF-CARE METER ID UU14188625
== END 2017-03-13 13:28 | disposition home health service (06) | DRG 442 ==
LOC: EME 11:27 → 4WEST 16:38 → EDOF 16:38 → ENRESERV 16:51 → CANRESERV 16:51 → ENRESERV 16:58 → CANRESERV 17:01 → ENRESERV 17:01 → 4WEST 17:41 → CANRESERV 03-11 17:10 → ENRESERV 03-11 17:10 → 5SOUTH 03-12 14:09 → ENPENDDIS 03-13 → 5SOUTH 03-13 13:28
PROVIDERS: Emergency Medicine; Hospitalist; Internal Medicine Critical Care Medicine; Surgery
PROC: 30233N1 Transfusion of Nonautologous Red Blood Cells into Peripheral Vein, Percutaneous Approach (ICD-10-PCS; principal; 2017-03-11)
DX: K72.90 Hepatic failure, unspecified without coma (principal); N39.0 Urinary tract infection, site not specified; B96.20 Unspecified Escherichia coli [E. coli] as the cause of diseases classified elsewhere; K70.31 Alcoholic cirrhosis of liver with ascites; I85.10 Secondary esophageal varices without bleeding; K76.6 Portal hypertension; K31.89 Other diseases of stomach and duodenum; D61.818 Other pancytopenia; D68.4 Acquired coagulation factor deficiency; E11.9 Type 2 diabetes mellitus without complications; E83.42 Hypomagnesemia; E87.6 Hypokalemia; F17.210 Nicotine dependence, cigarettes, uncomplicated; J45.909 Unspecified asthma, uncomplicated; K21.9 Gastro-esophageal reflux disease without esophagitis; E66.9 Obesity, unspecified; F10.20 Alcohol dependence, uncomplicated; Z76.82 Awaiting organ transplant status; Z23 Encounter for immunization; Z79.4 Long term (current) use of insulin; Z85.42 Personal history of malignant neoplasm of other parts of uterus; Z91.14 Patient's other noncompliance with medication regimen; Z68.30 Body mass index [BMI] 30.0-30.9, adult
CPT/HCPCS: 36415; 71010; 80048; 80048 91; 80053; 81003; 82024 90; 82140; 82272; 82533; 82550 91; 82553; 82948; 83605; 83735; 84484; 85014; 85018; 85025; 85027; 85610; 86850; 86900; 86901; 86920; 87040; 87077; 87086; 87186; 87641; 90686; 93005; 99281; 99285; G0480; J0696; J1630; J1644; J1756; J1815; J2060; J3411; J3430; J3475; J3480; J7030; J7050; P9016; S0028; S0030

== ENCOUNTER 2017-04-02 11:42 | Inpatient (IN) | payer BC ==
[~2017-04-02] VITALS: Ht 157.5 cm; Wt 78.7 kg
[~2017-04-02 11:42] MED LIST changes: +BUPROPION HCL100 M1 PO; +CEFDINIR300 MG PO; +LANTUS 3 M100 UNITS1 SC; +ZINC GLUCONATE100 MG PO
[2017-04-02 12:24] LABS: INTER. NORMALIZED RATIO 1.3
[2017-04-02 12:25] LABS: CHLORIDE 113 mEq/L (99-109); POTASSIUM 3.6 mEq/L (3.7-5.4); SODIUM 142 mEq/L (136-147)
[2017-04-02 12:27] LABS: GLUCOSE 95 mg/dL (70-99)
[2017-04-02 12:28] LABS: ANION GAP 10 MEQ/L (2-14)
[2017-04-02 12:29] LABS: TOTAL BILIRUBIN 1.9 mg/dL (0.0-1.0)
[2017-04-02 12:30] LABS: HEMATOCRIT 33.4 % (36.0-46.0); MCH 24.8 PG (29.0-34.0); MCHC 29.6 G/DL (30.0-36.0); MCV 83.7 FL (83-99); RBC DIS.WIDTH-CV 22.5 % (11.8-14.6); RBC DIS.WIDTH-SD 68.2 % (39-53); RED BLOOD COUNT 3.99 M/uL (3.80-5.20); WHITE BLOOD COUNT 3.2 K/uL (4.1-10.2)
[2017-04-02 12:31] LABS: ALKALINE PHOSPHATASE 188 IU/L (3-129); GFR ESTIMATE (CALCULATED) > 59 mL/min/
[2017-04-02 12:32] LABS: UREA NITROGEN (BUN) 9 mg/dL (9-23)
[2017-04-02 13:20] LABS: IMM.PLATELET FRACTION 5.2 (1-7); PLAT.SUFFICIENCY DECREASED; PLATELET COUNT 45 K/uL (156-360)
[2017-04-02 15:11] LABS: QUANTITATIVE HCG < 4.0 MIU/ML
[2017-04-02 16:48] VITALS: BP 102/83
[2017-04-02 17:20] LABS: POINT-OF-CARE METER ID UU14174225
[2017-04-02 19:24] VITALS: BP 115/65
[2017-04-02 22:50] LABS: ADD MIUA? NO; BILIRUBIN NEGATIVE; BLOOD NEGATIVE; COLOR YELLOW ((YELLOW)); GLUCOSE (STRIP) NEGATIVE; KETONES NEGATIVE; LEUKOCYTES NEGATIVE; NITRITE NEGATIVE; PROTEIN (STRIP) NEGATIVE; SPECIFIC GRAVITY 1.004 (1.000-1.030)
[2017-04-02 23:29] VITALS: BP 97/49
[2017-04-03 03:42] VITALS: BP 101/64
[2017-04-03 07:41] LABS: EOSINOPHIL (%) 1.7 % (0-5); HEMATOCRIT 30.2 % (36.0-46.0); IMMATURE GRANULOCYTE (%) 0.4 % (0.0-0.7); INSTRUMENT ABS NEUTROPHIL CT 1.4 K/uL; LYMPHOCYTE COUNT 0.6 K/uL (1.0-2.8); MCH 24.4 PG (29.0-34.0); MCHC 29.1 G/DL (30.0-36.0); MCV 83.9 FL (83-99); MONOCYTE (%) 12.3 % (3-12); MONOCYTE COUNT 0.3 K/uL (0-0.8); NEUTROPHIL COUNT 1.4 K/uL (1.8-6.4); RBC DIS.WIDTH-CV 22.5 % (11.8-14.6); RBC DIS.WIDTH-SD 67.6 % (39-53); WHITE BLOOD COUNT 2.4 K/uL (4.1-10.2)
[2017-04-03 07:57] LABS: IMM.PLATELET FRACTION 4.6 (1-7); PLAT.SUFFICIENCY DECREASED; PLATELET COUNT 38 K/uL (156-360)
[2017-04-03 08:02] LABS: ALKALINE PHOSPHATASE 138 IU/L (3-129); ANION GAP 6 MEQ/L (2-14); CHLORIDE 118 MEQ/L (99-109); DIRECT BILIRUBIN 0.5 mg/dL (0.0-0.3); GFR ESTIMATE (CALCULATED) > 59 mL/min/; GLUCOSE 89 mg/dL (70-99); POTASSIUM 3.7 MEQ/L (3.7-5.4); SAMPLE HEMOLYSIS CHECK 0; SAMPLE ICTERIC CHECK 0; SAMPLE LIPEMIA CHECK 0; SODIUM 144 MEQ/L (136-147); TOTAL BILIRUBIN 1.6 MG/DL (0.0-1.0); UREA NITROGEN (BUN) 12 mg/dL (9-23)
[2017-04-03 08:14] LABS: POINT-OF-CARE METER ID UU13113717
[2017-04-03 08:21] VITALS: BP 114/57
[2017-04-03 12:18] VITALS: BP 111/58
[2017-04-03 12:28] LABS: POINT-OF-CARE METER ID UU13113717
[2017-04-03 15:50] VITALS: BP 135/78; BP 97/59
[2017-04-03 17:01] LABS: POINT-OF-CARE METER ID UU13113717
[2017-04-03 21:28] LABS: POINT-OF-CARE METER ID UU14174225
[2017-04-03 23:58] VITALS: BP 95/53
[2017-04-04 07:24] VITALS: BP 111/57
[2017-04-04 07:43] LABS: POINT-OF-CARE METER ID UU13113717
[2017-04-04 09:27] LABS: POINT-OF-CARE METER ID UU13113717
[2017-04-04] MEDS ORDERED: DICYCLOMINE HCL10 MG PO (10:18)
[2017-04-04] MEDS ORDERED: PROTONIX40 MG PO (11:09)
== END 2017-04-04 11:46 | disposition home health service (06) | DRG 433 ==
LOC: EME 11:42 → EDOF 14:54 → 5SOUTH 14:54 → ENRESERV 14:57 → 5SOUTH 16:06 → ENPENDDIS 04-04 → 5SOUTH 04-04 11:46
PROVIDERS: Emergency Medicine; Internal Medicine; Nurse Practitioner Adult Health; Nurse Practitioner Family
DX: K70.40 Alcoholic hepatic failure without coma (principal); K76.6 Portal hypertension; E72.20 Disorder of urea cycle metabolism, unspecified; I85.00 Esophageal varices without bleeding; D69.59 Other secondary thrombocytopenia; D63.8 Anemia in other chronic diseases classified elsewhere; E11.9 Type 2 diabetes mellitus without complications; E87.6 Hypokalemia; F10.10 Alcohol abuse, uncomplicated; F17.210 Nicotine dependence, cigarettes, uncomplicated; J45.909 Unspecified asthma, uncomplicated; K21.9 Gastro-esophageal reflux disease without esophagitis; K31.89 Other diseases of stomach and duodenum; K64.9 Unspecified hemorrhoids; K70.31 Alcoholic cirrhosis of liver with ascites; K70.11 Alcoholic hepatitis with ascites; E66.9 Obesity, unspecified; E87.8 Other disorders of electrolyte and fluid balance, not elsewhere classified; Z79.4 Long term (current) use of insulin; Z85.42 Personal history of malignant neoplasm of other parts of uterus; Z90.49 Acquired absence of other specified parts of digestive tract; Z68.31 Body mass index [BMI] 31.0-31.9, adult
CPT/HCPCS: 71020; 76705; 80048; 80053; 80076; 81003; 82140; 82248; 82948; 84702; 85025; 85027; 85610; 87070; 87086; 87205; 89051; 99202; 99281; 99285; C9113; J1815

== ENCOUNTER 2017-11-17 13:14 | Emergency (ER) | payer BC ==
[~2017-11-17] VITALS: Ht 157.5 cm; Wt 70.9 kg
[~2017-11-17 13:14] MED LIST changes: +DICYCLOMINE HCL10 MG PO
[2017-11-17 14:00] LABS: APPEARANCE SL.HAZY ((CLEAR)); BILIRUBIN NEGATIVE; BLOOD NEGATIVE; COLOR YELLOW ((YELLOW)); GLUCOSE (STRIP) >=500; KETONES NEGATIVE; LEUKOCYTES NEGATIVE; NITRITE POSITIVE; PROTEIN (STRIP) NEGATIVE; SPECIFIC GRAVITY 1.022 (1.000-1.030); UROBILINOGEN 0.2 MG/DL (0.2-1.0)
[2017-11-17 14:06] LABS: BASOPHIL (%) 0.4 % (0-1); EOSINOPHIL COUNT 0.1 K/uL (0-0.3); HEMATOCRIT 33.9 % (36.0-46.0); HEMOGLOBIN 10.5 G/DL (11.9-15.5); IMMATURE GRANULOCYTE (%) 0.2 % (0.0-0.7); LYMPHOCYTE (%) 23.7 % (15-42); LYMPHOCYTE COUNT 1.1 K/uL (1.0-2.8); MCH 23.3 PG (29.0-34.0); MCV 75.2 FL (83-99); MONOCYTE COUNT 0.5 K/uL (0-0.8); NEUTROPHIL (%) 62.7 % (45-76); NEUTROPHIL COUNT 2.9 K/uL (1.8-6.4); RBC DIS.WIDTH-CV 21.3 % (11.8-14.6); RBC DIS.WIDTH-SD 56.8 % (39-53); RED BLOOD COUNT 4.51 M/uL (3.80-5.20); WHITE BLOOD COUNT 4.6 K/uL (4.1-10.2)
[2017-11-17 14:07] LABS: CHLORIDE 116 mEq/L (99-109); POTASSIUM 3.3 mEq/L (3.7-5.4); SODIUM 139 mEq/L (136-147)
[2017-11-17 14:09] LABS: GLUCOSE 317 mg/dL (70-99); TOTAL PROTEIN 5.8 g/dL (6.4-8.3)
[2017-11-17 14:11] LABS: TOTAL BILIRUBIN 1.9 mg/dL (0.0-1.0)
[2017-11-17 14:12] LABS: ALKALINE PHOSPHATASE 179 IU/L (3-129)
[2017-11-17 14:13] LABS: BACTERIA 2+ /HPF; EPITHELIAL CELLS 2+ /HPF; MUCUS NONE SEEN /LPF; RED BLOOD CELLS 0-5 /HPF (0-5); UCUL ADDED? YES; WHITE BLOOD CELLS 0-5 /HPF (0-5)
[2017-11-17 14:13] LABS: CREATININE 0.8 mg/dL (0.6-1.3); GFR ESTIMATE (CALCULATED) > 59 mL/min/
[2017-11-17 14:14] LABS: AST (GOT) 63 IU/L (2-34); UREA NITROGEN (BUN) 11 mg/dL (9-23)
[2017-11-17 14:15] LABS: ALT (GPT) 51 IU/L (3-49)
[2017-11-17 14:48] LABS: PLAT.SUFFICIENCY DECREASED; PLATELET COUNT UNABLE TO REPORT K/uL (156-360)
[2017-11-17 16:14] VITALS: BP 108/63
== END 2017-11-17 16:15 | disposition home or self-care (01) ==
LOC: EME 13:14
PROVIDERS: Emergency Medicine
DX: E11.65 Type 2 diabetes mellitus with hyperglycemia (principal); K72.90 Hepatic failure, unspecified without coma; Z79.4 Long term (current) use of insulin; K74.60 Unspecified cirrhosis of liver; J45.909 Unspecified asthma, uncomplicated; K21.9 Gastro-esophageal reflux disease without esophagitis; Z85.42 Personal history of malignant neoplasm of other parts of uterus; Z86.69 Personal history of other diseases of the nervous system and sense organs; F17.200 Nicotine dependence, unspecified, uncomplicated; Z90.710 Acquired absence of both cervix and uterus
CPT/HCPCS: 71046; 80053; 81003; 82010; 82140; 82948; 85025; 87077; 87086; 87186; J7040